=== PATIENT | male | born 1960 | race Caucasian/White ===

== ENCOUNTER 2019-08-29 03:34 | Inpatient (IN) | payer OTHER ==
[~2019-08-29] VITALS: Ht 182.9 cm; Wt 126.0 kg
[2019-08-29] VITALS (12 sets, daily range): BP systolic 112–166; BP diastolic 75–100
[2019-08-29] MEDS ORDERED: aspirin 81mg tab.chew PO ONE ×2 (03:40→13:15)
[2019-08-29] MEDS ORDERED: ondansetron/PF 4mg/2ml inj IV ONE (03:45)
[2019-08-29] MEDS ORDERED: morphine 4 MG/ML inj SYRINge IV ONE (03:45)
[2019-08-29 04:28] LABS: BASOPHILS % (AUTO) 0.6 % (0-1); EOSINOPHILS % (AUTO) 0.3 % (0-6); HEMATOCRIT 49.5 % (42.0-52.0); LYMPHOCYTES # (AUTO) 0.8 X10'3 (1.1-4.8); LYMPHOCYTES % (AUTO) 9.6 % (21-51); MEAN CORPUSCULAR HEMOGLOBIN 30.8 PG (27.0-31.0); MEAN CORPUSCULAR HGB CONC 34.2 g/dL (33.0-36.5); MONOCYTES # (AUTO) 0.2 X10'3 (0-0.9); MONOCYTES % (AUTO) 2.3 % (2-12); NEUTROPHILS # (AUTO) 7.7 X10'3 (1.8-7.7); NEUTROPHILS % (AUTO) 87.2 % (42-75); PLATELET COUNT 159 X10'3 (140-440); RED BLOOD COUNT 5.51 X10'6 (4.70-6.10); RED CELL DISTRIBUTION WIDTH 13.6 % (11.5-14.5); WHITE BLOOD COUNT 8.8 X10'3 (4.5-11.0)
--- NOTE | 2019-08-29 05:08 | NUR ---
[facility] CALLED FOR UPDATE.
[2019-08-29 05:14] LABS: PARTIAL THROMBOPLASTIN TIME 28 SECONDS (22-32)
[2019-08-29 05:15] LABS: ALANINE AMINOTRANSFERASE 57 U/L (12-78); ALBUMIN 3.6 G/DL (3.4-5.0); ALBUMIN/GLOBULIN RATIO 0.9 (1.1-1.5); ALKALINE PHOSPHATASE 75 IU/L (46-116); ANION GAP 11 (8-16); ASPARTATE AMINO TRANSFERASE 184 U/L (10-37); BILIRUBIN,TOTAL 0.5 MG/DL (0.1-1.0); BLOOD UREA NITROGEN 13 MG/DL (7-18); BUN/CREATININE RATIO 15.5 (5.4-32.0); CALCIUM 8.6 MG/DL (8.5-10.1); CHLORIDE 104 MMOL/L (99-107); CREATININE 0.84 MG/DL (0.60-1.10); GLUCOSE 184 MG/DL (70-104); POTASSIUM 3.5 MMOL/L (3.5-5.1); SODIUM 139 MMOL/L (135-145); TOTAL CARBON DIOXIDE 23.6 MMOL/L (24-32); TOTAL PROTEIN 7.5 G/DL (6.4-8.2); eGFR > 90 ML/MIN
[2019-08-29] MEDS ORDERED: heparin 25,000 UNIT/250ml bag 250 ML IV SCH ×2 (05:21→05:54)
[2019-08-29 05:22] LABS: TROPONIN I 27.03 NG/ML (0.0-0.05)
[2019-08-29] MEDS ORDERED: nitroGLYCERIN-Tridil 50MG/D5W 250 ML IV PRN (05:24)
[2019-08-29 05:25] LABS: MAGNESIUM 1.6 MG/DL (1.5-2.4)
[2019-08-29] MEDS ORDERED: heparin 10,000 units/1 ML INJ IV ONE ×2 (05:25)
[2019-08-29] MEDS ORDERED: heparin 10,000 units/1 ML INJ IV PRN ×2 (05:25→05:55)
[2019-08-29] MEDS ORDERED: normal saline 1000ml 1,000 ML IV SCH ×2 (05:54→13:15)
[2019-08-29] MEDS ORDERED: ondansetron/PF 4mg/2ml inj IV PRN ×2 (05:55→13:15)
[2019-08-29] MEDS ORDERED: mag hydrox/Alum hydrox/simeth 30ml oral suspension PO PRN (05:55)
[2019-08-29] MEDS ORDERED: magnesium hydroxide 30ml (MOM) UD suspension PO PRN (05:55)
[2019-08-29] MEDS ORDERED: morphine 2 MG/ML inj. syringe IV PRN ×2 (05:55)
[2019-08-29] MEDS ORDERED: acetaminophen 325mg tablet PO PRN (05:55)
[2019-08-29] MEDS: nitroGLYCERIN-Tridil 50MG/D5W 250 ML IV SCH ×2 (06:10→07:13)
--- NOTE | 2019-08-29 06:15 | NUR ---
Noc RN at bedside.Patient received on bed awake.
--- NOTE | 2019-08-29 06:20 | NUR ---
PT STATUS PROVIDED TO [facility].
[2019-08-29 06:49] LABS: D-DIMER 0.29 MG/L FEU (0-0.50)
[2019-08-29] MEDS ORDERED: OMEP40CA13 PO (06:57)
[2019-08-29] MEDS ORDERED: ASPI-1265 PO (06:57)
[2019-08-29] MEDS ORDERED: ACET650S13 RC (06:57)
[2019-08-29] MEDS ORDERED: LOSA25TA96 PO (06:57)
[2019-08-29] MEDS ORDERED: VITA-268 PO (06:57)
[2019-08-29] MEDS ORDERED: TRAM50TA2 PO (06:57)
[2019-08-29] MEDS ORDERED: HYDR25TA4 PO (06:57)
[2019-08-29] MEDS ORDERED: ERGO500014 PO (06:57)
[2019-08-29] MEDS ORDERED: ACET-2119 PO (06:59)
--- NOTE | 2019-08-29 07:19 | NUR ---
Recieved report from MARISOL Arce in ER. Pt admitted for CP NSTEMI,
[2019-08-29] MEDS ORDERED: sodium bicarbonate (8.4%) 1 mEq/ml syringe ONE (08:00)
[2019-08-29] MEDS ORDERED: calcium chloride 100 MG/1 ML inj IV ONE (08:00)
[2019-08-29] MEDS ORDERED: heparin 1,000 units/ml 10ml inj ONE (08:00)
[2019-08-29] MEDS ORDERED: heparin 10,000 units/1 ML INJ ONE (08:00)
[2019-08-29] MEDS ORDERED: methylPREDNISolone sod. succ. 500mg inj ONE (08:00)
[2019-08-29] MEDS ORDERED: aminocaproic acid 250 MG/1 ML inj. ONE (08:00)
[2019-08-29] MEDS ORDERED: LIDOcaine 2% (20 mg/ml) 5ml cardiac syringe ONE (08:00)
[2019-08-29] MEDS ORDERED: NORepinephrine 1 mg/ml inj IV ONE (08:00)
[2019-08-29] MEDS ORDERED: potassium Cl 2 mEq/ml inj IV ONE (08:00)
[2019-08-29] MEDS ORDERED: MAGNESIUM SULFATE 4 MEQ/ML (5gm/10ml) injection ONE (08:00)
[2019-08-29] MEDS ORDERED: atorvastatin 20mg tablet PO SCH ×2 (08:00→21:00)
[2019-08-29] MEDS ORDERED: albumin (human) 25% 100 ML IV solution IV ONE (08:00)
[2019-08-29] MEDS: lisinopril 5mg tablet PO SCH (08:09)
[2019-08-29] MEDS: aspirin 81mg tablet.DR PO SCH (08:10)
--- NOTE | 2019-08-29 09:05 | NUR ---
I WAS INFORMED THAT PT TROP LEVEL CAME BACK AT 97.34. I SPOKE TO DR SPRAGUE. MED CHANGES MADE. I ALERTED HOUSE SUP REGARDING PT LABS. PT REMAINS NPO. HEP GTT CONTINUES. WE WILL START AGGRASTAT GTT AND D/C NTG GTT. PT DENIES CP.
--- NOTE | 2019-08-29 09:13 | NUR ---
Critical Lab Troponin 97.34 Micheal Hartley Rm [id number] MARISOL Nugent [phone]
[2019-08-29] MEDS ORDERED: tirofiban 5mg in NS 100mL 100 ML IV SCH (09:15)
[2019-08-29] MEDS: heparin 25,000 UNIT/250ml bag 250 ML IV SCH ×2 (09:30→16:57)
--- NOTE | 2019-08-29 11:05 | NUR ---
Critical Lab Troponin 129.08 Micheal Hartley Rm [id number] MARISOL Nugent ext [phone] Sepulveda
--- NOTE | 2019-08-29 11:08 | NUR ---
called Dr aWrd's office to notify of critical Troponin 129.08 notified banana loader of critical value
[2019-08-29] MEDS ORDERED: fentaNYL/PF 50MCG/1 ML 2ML syringe ONE (11:50)
[2019-08-29] MEDS ORDERED: LIDOcaine 1% W/epiNEPHrine 1:100,000 20ml vial ONE (11:50)
[2019-08-29] MEDS ORDERED: iohexol 350MG/ML 100ml bottle IV ONE (11:50)
[2019-08-29] MEDS ORDERED: midazolam 2 mg/2 ml injection ONE (11:50)
[2019-08-29] MEDS ORDERED: metoprolol tartrate 1mg/ml inj IV ONE (12:30)
--- NOTE | 2019-08-29 12:49 | NUR ---
Spoke with laboratory engineer he will be sent back to floor and a surgical consult with Dr Han is scheduled
--- NOTE | 2019-08-29 13:04 | NUR ---
pt returned from casting house laborer. groggy, but arousable. Denies pain or nausea at this time. Vitals are within normal limits. Monitoring for post op vitals per tower.
[2019-08-29] MEDS ORDERED: HYDROcodone/acetaminophen 10/325mg tab PO PRN (13:15)
[2019-08-29] MEDS ORDERED: proCHLORperazine 10 MG/2 ml inj IV PRN (13:15)
[2019-08-29] MEDS ORDERED: HYDROcodone/acetaminophen 5mg/325mg tablet PO PRN (13:15)
[2019-08-29] MEDS ORDERED: normal saline 1000ml 1,000 ML IV ONE (13:19)
[2019-08-29] MEDS ORDERED: OXAZEpam 15mg capsule PO PRN (13:20)
[2019-08-29] MEDS ORDERED: insulin regular, human 100 UNIT in normal saline 100ml IV soln 100 ML IV SCH ×2 (13:51)
[2019-08-29] MEDS ORDERED: vancomycin/NS 1 GM ADD-VANTAGE 250 ML IV ONE (13:55)
[2019-08-29] MEDS ORDERED: MALTODEXTRIN/FRUCTOSE 0.68 KCAL/ML LIQUID 296ML BOTTLE PO ONE (13:55)
[2019-08-29] MEDS ORDERED: magnesium 2GM in 50ml NS 50 ML IV PRN (13:55)
[2019-08-29] MEDS ORDERED: potassium Cl 20 mEq SR tablet PO PRN (13:55)
[2019-08-29] MEDS ORDERED: MESSAGE TO NURSING PO ONE ×4 (13:55)
[2019-08-29] MEDS ORDERED: insulin glargine (Lantus) pen - multi-dose SQ PRN (13:55)
[2019-08-29] MEDS ORDERED: magnesium 4gm in 100ml NS 100 ML IV PRN (13:55)
[2019-08-29] MEDS ORDERED: cefazolin/dext.iso 2gm/50ml 50 ML IV ONE (13:55)
[2019-08-29] MEDS ORDERED: potassium Cl 20mEq/100mL bag 100 ML IV PRN (13:55)
[2019-08-29] MEDS ORDERED: dextrose 50%-water 50ml dispensing syringe IV PRN (13:55)
[2019-08-29] MEDS ORDERED: gabapentin 400mg capsule PO ONE (13:55)
[2019-08-29] MEDS ORDERED: ringers solution, lacted 1,000 ML IV ONE (14:04)
--- NOTE | 2019-08-29 14:45 | NUR ---
pt was transferred to ACCE unit rm 9 MARISOL Nascimento was given report.
--- NOTE | 2019-08-29 15:18 | NUR ---
RESPIRATORY, ULTRASOUND AND BURLAP ROLL COVERER PAGED = [phone]: Sofia PULIDO - 1ST CASE CABG IN AM. PLEASE COME DO PRE-OP STUDIES
[2019-08-29 16:12] LABS: HEMATOCRIT 48.8 % (42.0-52.0); HEMOGLOBIN 16.6 g/dl (14.0-17.9); MEAN CORPUSCULAR HEMOGLOBIN 30.4 PG (27.0-31.0); MEAN CORPUSCULAR VOLUME 89.2 FL (78-98); MEAN PLATELET VOLUME 9.3 FL (7.4-10.4); PLATELET COUNT 155 X10'3 (140-440); RED BLOOD COUNT 5.46 X10'6 (4.70-6.10); WHITE BLOOD COUNT 12.5 X10'3 (4.5-11.0)
[2019-08-29 16:21] LABS: HEMOGLOBIN A1C 5.8 % (4.5-6.2)
[2019-08-29 16:35] LABS: ALBUMIN 3.4 G/DL (3.4-5.0); ANION GAP 9 (8-16); BLOOD UREA NITROGEN 10 MG/DL (7-18); CALCIUM 8.2 MG/DL (8.5-10.1); CHLORIDE 104 MMOL/L (99-107); CREATININE 0.77 MG/DL (0.60-1.10); GLUCOSE 141 MG/DL (70-104); POTASSIUM 3.9 MMOL/L (3.5-5.1); SODIUM 138 MMOL/L (135-145); TOTAL CARBON DIOXIDE 24.8 MMOL/L (24-32); eGFR > 90 ML/MIN
[2019-08-29] MEDS: heparin 10,000 units/1 ML INJ IV PRN (16:54)
--- NOTE | 2019-08-29 17:48 | NUR ---
PRE-OP VANCO DOSE GIVEN BY MISTAKE BEFORE PATIENT TRANSFERRED TO [facility] FOR [facility] PREP. PHARMACY AND DR. BROOKS INFORMED: NO NEW ORDERS RECEIVED
--- NOTE | 2019-08-29 18:00 | NUR ---
Patient in room MED 309. I have received report from MARISOL Jones and had the opportunity to ask questions and assume patient care.
--- NOTE | 2019-08-29 19:02 | NUR ---
Patient in room MED 309. I have received report from SIENA DAMON and had the opportunity to ask questions and assume patient care.
--- NOTE | 2019-08-29 19:15 | NUR ---
Pt left with Chest X-ray tech in W/C at 1915.
--- NOTE | 2019-08-29 19:25 | NUR ---
Pt came back from X-ray at 1925 in wheelchair. No distress noted. Family by bedside
[2019-08-29] MEDS ORDERED: metoprolol tartrate 12.5mg (1/2 tablet) PO SCH (20:00)
[2019-08-29] MEDS ORDERED: bacitracin ointment unit dose packet TP SCH (20:00)
--- NOTE | 2019-08-29 20:31 | NUR ---
Page to Echo: 309 pt ASHOK pre-CABG scheduled for tomorrow am. Has active order for Echo. Thank you. - [phone]
[2019-08-29] MEDS: metoprolol tartrate 25mg tablet PO SCH (20:58)
[2019-08-30] VITALS (17 sets, daily range): BP systolic 91–157; BP diastolic 52–88
[2019-08-30] LABS: ABG BASE EXCESS 2.6 mmol/L (-2.0-3.0); ABG HCO3 26.2 mmol/L (22.0-26.0); ABG OXYGEN SATURATION 94.6 % (95-98); ABG PCO2 (T) 37.4 mmHg (35.0-45.0); ABG PH (T) 7.463 (7.350-7.450); FCOHb 1.3 % (0.5-1.5); FMetHb 0.2 % (0.3-1.12); FO2Hb 93.2 % (94-100); PATIENT TEMPERATURE 37.2; TOTAL HEMOGLOBIN 16.9 G/dl (14.0-17.9)
[2019-08-30] MEDS: heparin 10,000 units/1 ML INJ IV PRN (00:19)
[2019-08-30] MEDS ORDERED: albuterol 2.5 MG/3 ML nebule NEB ONE (00:30)
[2019-08-30 03:13] LABS: CLARITY,URINE CLEAR (Clear); COLOR,URINE YELLOW (Yellow); GLUCOSE, URINE NEGATIVE (Neg); KETONES,URINE NEGATIVE (Neg); LEUKOCYTE ESTERASE ,URINE NEGATIVE (Neg); NITRITES, URINE NEGATIVE (Neg); OCCULT BLOOD,URINE NEGATIVE (Neg); PROTEIN,URINE 30 mg/dl (Neg); UROBILINOGEN,URINE 0.2 E.U/dL (0.2-1.0)
[2019-08-30 03:20] LABS: BACTERIA,URINE NONE SEEN /HPF (Neg); MUCUS STRANDS FEW /LPF (Neg); RBC,URINE 0-2 /HPF (0-2); SQUAMOUS EPITHELIAL CELL,UR FEW /LPF (FEW); UA COLLECTION TYPE CLN CATCH MIDSTREAM; WBC,URINE NONE SEEN /HPF (0-4)
[2019-08-30 04:40] LABS: BASOPHILS % (AUTO) 0.4 % (0-1); EOSINOPHILS % (AUTO) 0.1 % (0-6); HEMOGLOBIN 16.3 g/dl (14.0-17.9); LYMPHOCYTES # (AUTO) 1.3 X10'3 (1.1-4.8); LYMPHOCYTES % (AUTO) 15.7 % (21-51); MEAN CORPUSCULAR HEMOGLOBIN 30.9 PG (27.0-31.0); MEAN CORPUSCULAR HGB CONC 33.9 g/dL (33.0-36.5); MEAN CORPUSCULAR VOLUME 91.1 FL (78-98); MEAN PLATELET VOLUME 9.1 FL (7.4-10.4); MONOCYTES # (AUTO) 0.6 X10'3 (0-0.9); MONOCYTES % (AUTO) 6.8 % (2-12); NEUTROPHILS # (AUTO) 6.3 X10'3 (1.8-7.7); PLATELET COUNT 130 X10'3 (140-440); RED BLOOD COUNT 5.27 X10'6 (4.70-6.10); RED CELL DISTRIBUTION WIDTH 14.3 % (11.5-14.5); WHITE BLOOD COUNT 8.2 X10'3 (4.5-11.0)
[2019-08-30 04:48] LABS: ALBUMIN 3.3 G/DL (3.4-5.0); ANION GAP 5 (8-16); BLOOD UREA NITROGEN 11 MG/DL (7-18); BUN/CREATININE RATIO 11.8 (5.4-32.0); CALCIUM 8.8 MG/DL (8.5-10.1); CHLORIDE 105 MMOL/L (99-107); CREATININE 0.93 MG/DL (0.60-1.10); GLUCOSE 102 MG/DL (70-104); POTASSIUM 3.9 MMOL/L (3.5-5.1); SODIUM 141 MMOL/L (135-145); TOTAL CARBON DIOXIDE 30.8 MMOL/L (24-32); eGFR 84 ML/MIN
[2019-08-30] MEDS ORDERED: bacitracin ointment unit dose packet TP ONE (04:55)
[2019-08-30] MEDS ORDERED: mupirocin 2% nasal ointment 1gm UD NS ONE (04:57)
[2019-08-30] MEDS: metoprolol tartrate 25mg tablet PO SCH (04:59)
[2019-08-30] MEDS ORDERED: cefazolin/dext.iso 2gm/50ml 50 ML IV ONE (05:30)
[2019-08-30] MEDS ORDERED: insulin regular, human 100 UNIT in normal saline 100ml IV soln 100 ML IV SCH ×2 (05:30)
[2019-08-30] MEDS ORDERED: vancomycin/NS 1 GM ADD-VANTAGE 250 ML IV ONE (05:30)
[2019-08-30] MEDS ORDERED: famotidine 20mg tablet PO ONE (06:00)
[2019-08-30] MEDS ORDERED: LORazepam 2 mg/ml vial IV ONE (06:00)
--- NOTE | 2019-08-30 06:00 | NUR ---
Problems reprioritized. Patient report given, questions answered & plan of care reviewed with MARISOL Jones.
--- NOTE | 2019-08-30 06:33 | NUR ---
Patient in room MED 309. I have received report from MARISOL Richards and had the opportunity to ask questions and assume patient care.
[2019-08-30 06:47] LABS: CHOL/HDL RATIO 4.4 (0.00-4.99); CHOLESTEROL 136 MG/DL (0-200); HDL CHOLESTEROL 31 MG/DL (35-60); LDL CHOLESTEROL 97 MG/DL (50-100); TRIGLYCERIDES 96 MG/DL (20-135)
[2019-08-30] MEDS ORDERED: epiNEPHrine 1 mg/ml inj ONE (06:49)
[2019-08-30] MEDS ORDERED: BUPIVAcaine 0.5% inj/PF 30 ML ONE ×2 (06:49→12:10)
[2019-08-30] MEDS ORDERED: ceFAZolin 1000mg inj ONE (06:49)
--- NOTE | 2019-08-30 07:09 | NUR ---
Patient in room MED 309. I have received report from MARISOL Goldman and had the opportunity to ask questions and assume patient care.
[2019-08-30] MEDS ORDERED: SUFENTANIL CITRATE 50 MCG/ML 2ml ampule IV ONE (07:39)
[2019-08-30] MEDS ORDERED: MIDAZolam 5mg/5ml vial ONE (07:39)
[2019-08-30] MEDS ORDERED: pancuronium br 1mg/ml inj IV ONE (07:42)
[2019-08-30] MEDS ORDERED: LIDOcaine 2% (20mg/ml) 5ml vial ONE (07:42)
[2019-08-30] MEDS ORDERED: propofol inj 20 ML IV ONE (07:42)
[2019-08-30] MEDS: lisinopril 5mg tablet PO SCH (08:00)
[2019-08-30] MEDS: aspirin 81mg tablet.DR PO SCH (08:00)
[2019-08-30] MEDS ORDERED: MESSAGE TO NURSING PO ONE (10:00)
[2019-08-30 10:21] LABS: ABG BASE EXCESS -0.5 mmol/L (-2.0-3.0); ABG HCO3 23.3 mmol/L (22.0-26.0); ABG OXYGEN SATURATION 98.9 % (95-98); ABG PCO2 36.1 mmHg (35.0-45.0); ABG PH 7.428 (7.350-7.450); ABG PO2 142.6 mmHg (60.0-100.0); CL (ABG) 102 mmol/L (99-107); FCOHb 1.4 % (0.5-1.5); FMetHb 0.4 % (0.3-1.12); FO2Hb 97.1 % (94-100); GLUCOSE (ABG) 104 mg/dl (70-104); IONIZED CA (ABG) 1.12 mmol/L (1.03-1.32); K (ABG) 3.8 mmol/L (3.3-5.1); NA (ABG) 137 mmol/L (135-145); TOTAL HEMOGLOBIN 15.7 G/dl (14.0-17.9)
[2019-08-30 11:01] LABS: ABG BASE EXCESS 0.8 mmol/L (-2.0-3.0); ABG HCO3 25.5 mmol/L (22.0-26.0); ABG OXYGEN SATURATION 99.4 % (95-98); ABG PCO2 41.1 mmHg (35.0-45.0); ABG PO2 430.1 mmHg (60.0-100.0); CL (ABG) 99 mmol/L (99-107); FMetHb 0.1 % (0.3-1.12); FO2Hb 98.3 % (94-100); GLUCOSE (ABG) 111 mg/dl (70-104); IONIZED CA (ABG) 0.94 mmol/L (1.03-1.32); K (ABG) 3.2 mmol/L (3.3-5.1); NA (ABG) 135 mmol/L (135-145); TOTAL HEMOGLOBIN 12.3 G/dl (14.0-17.9)
[2019-08-30 11:20] LABS: ABG BASE EXCESS VENOUS 0.2 mmol/L; ABG HCO3 VENOUS 26.2 mmol/L; ABG PO2 VENOUS 46.7 mmHg; CL (ABG) 101 mmol/L (99-107); FCOHb VENOUS 1.5 %; FHHb VENOUS 17.8 %; FMetHb VENOUS 0.1 %; FO2Hb VENOUS 80.6 %; GLUCOSE (ABG) 122 mg/dl (70-104); IONIZED CA (ABG) 1.11 mmol/L (1.03-1.32); K (ABG) 4.5 mmol/L (3.3-5.1); NA (ABG) 136 mmol/L (135-145); TOTAL HEMOGLOBIN 13.2 G/dl (14.0-17.9)
[2019-08-30 11:46] LABS: ABG BASE EXCESS -4.4 mmol/L (-2.0-3.0); ABG HCO3 20.3 mmol/L (22.0-26.0); ABG OXYGEN SATURATION 99.2 % (95-98); ABG PCO2 35.9 mmHg (35.0-45.0); ABG PO2 235.2 mmHg (60.0-100.0); CL (ABG) 100 mmol/L (99-107); FCOHb 1.1 % (0.5-1.5); FMetHb 0.3 % (0.3-1.12); FO2Hb 97.8 % (94-100); GLUCOSE (ABG) 119 mg/dl (70-104); IONIZED CA (ABG) 1.26 mmol/L (1.03-1.32); K (ABG) 4.1 mmol/L (3.3-5.1); NA (ABG) 133 mmol/L (135-145); TOTAL HEMOGLOBIN 12.5 G/dl (14.0-17.9)
[2019-08-30 11:55] LABS: ABG BASE EXCESS 2.3 mmol/L (-2.0-3.0); ABG HCO3 26.6 mmol/L (22.0-26.0); ABG OXYGEN SATURATION 99.2 % (95-98); ABG PCO2 40.6 mmHg (35.0-45.0); ABG PH 7.435 (7.350-7.450); ABG PO2 253.7 mmHg (60.0-100.0); CL (ABG) 99 mmol/L (99-107); FCOHb 1.1 % (0.5-1.5); FMetHb 0.3 % (0.3-1.12); FO2Hb 97.8 % (94-100); GLUCOSE (ABG) 119 mg/dl (70-104); IONIZED CA (ABG) 1.16 mmol/L (1.03-1.32); K (ABG) 4.4 mmol/L (3.3-5.1); NA (ABG) 137 mmol/L (135-145)
[2019-08-30 12:15] LABS: ABG BASE EXCESS VENOUS 0.5 mmol/L; ABG HCO3 VENOUS 25.6 mmol/L; ABG PCO2 VENOUS 43.2 mmHg; ABG PO2 VENOUS 38.2 mmHg; CL (ABG) 100 mmol/L (99-107); FCOHb VENOUS 1.3 %; FMetHb VENOUS 0.4 %; FO2Hb VENOUS 71.3 %; GLUCOSE (ABG) 124 mg/dl (70-104); K (ABG) 4.2 mmol/L (3.3-5.1); NA (ABG) 136 mmol/L (135-145); TOTAL HEMOGLOBIN 13.4 G/dl (14.0-17.9)
[2019-08-30] MEDS ORDERED: sodium chloride 0.45% 1,000 ML IV SCH (12:23)
[2019-08-30] MEDS ORDERED: niCARDipine-NS 40mg/200ml IVPB 200 ML IV PRN (12:23)
[2019-08-30] MEDS ORDERED: epiNEPHrine inj 5 MG in normal saline 250ml IV soln 250 ML IV PRN (12:23)
[2019-08-30] MEDS ORDERED: nitroGLYCERIN-Tridil 50MG/D5W 250 ML IV SCH (12:23)
[2019-08-30] MEDS ORDERED: magnesium 4gm in 100ml NS 100 ML IV PRN (12:25)
[2019-08-30] MEDS ORDERED: metoclopramide 5 mg/ml inj IV PRN (12:25)
[2019-08-30] MEDS ORDERED: sodium phosphate inj. 30 MMOL in dextrose 5%-water 250 ML IV PRN (12:25)
[2019-08-30] MEDS ORDERED: potassium Cl 20 mEq SR tablet PO PRN (12:25)
[2019-08-30] MEDS ORDERED: sodium phosphate inj. 15 MMOL in dextrose 5%-water 150 ML IV PRN (12:25)
[2019-08-30] MEDS ORDERED: morphine 4 MG/ML inj SYRINge IV PRN (12:25)
[2019-08-30] MEDS ORDERED: ondansetron/PF 4mg/2ml inj IV PRN (12:25)
[2019-08-30] MEDS ORDERED: acetaminophen 325mg tablet PO PRN ×2 (12:25)
[2019-08-30] MEDS ORDERED: insulin regular, human inj. 100 UNITS in normal saline 100ml IV soln 100 ML IV SCH ×2 (12:25)
[2019-08-30] MEDS ORDERED: Neutra Phos packet PO PRN (12:25)
[2019-08-30] MEDS ORDERED: magnesium hydroxide 30ml (MOM) UD suspension PO PRN (12:25)
[2019-08-30] MEDS ORDERED: dextrose 50%-water 50ml dispensing syringe IV PRN (12:25)
[2019-08-30] MEDS ORDERED: pantoprazole 40 MG vial IV ONE (12:25)
[2019-08-30] MEDS: morphine 4 MG/ML inj SYRINge IV PRN ×3 (12:57→20:48)
[2019-08-30] MEDS: insulin Lispro (HumaLOG) vial - multi-dose SQ SCH ×2 (13:00→18:00)
--- NOTE | 2019-08-30 13:00 | NUR ---
Received to room 2007, accompanied by MDs and surgical crew. Placed on ventilator, to monitoring tech, arterial line and PA line pressure monitored. Chest tubes to suction at 20 cm. Jordan cath to gravity drainage. Dressings are dry and intact. See assessment record. All vasoactive drugs are infusing via central line.
[2019-08-30 13:10] LABS: ABG BASE EXCESS -0.8 mmol/L (-2.0-3.0); ABG HCO3 23.9 mmol/L (22.0-26.0); ABG OXYGEN SATURATION 96.7 % (95-98); ABG PCO2 (T) 39.8 mmHg (35.0-45.0); ABG PH (T) 7.396 (7.350-7.450); ABG PO2 (T) 92.8 mmHg (83-108); FCOHb 0.5 % (0.5-1.5); FLOW 45 L/min; FMetHb 0.1 % (0.3-1.12); FO2Hb 96.1 % (94-100); MINUTE VOLUME 11 L/min; PEEP 5 cm H2O; RESPIRATORY RATE 14 b/min; RESPIRATORY RATE (OBSERVED) 14 b/min; TIDAL VOLUME 700 mL; TOTAL HEMOGLOBIN 15.2 G/dl (14.0-17.9)
[2019-08-30 13:28] LABS: BASOPHILS % (AUTO) 0.3 % (0-1); EOSINOPHILS % (AUTO) 0.1 % (0-6); HEMOGLOBIN 14.8 g/dl (14.0-17.9); LYMPHOCYTES # (AUTO) 0.7 X10'3 (1.1-4.8); LYMPHOCYTES % (AUTO) 8.7 % (21-51); MEAN CORPUSCULAR HEMOGLOBIN 30.6 PG (27.0-31.0); MEAN CORPUSCULAR HGB CONC 33.8 g/dL (33.0-36.5); MEAN CORPUSCULAR VOLUME 90.7 FL (78-98); MEAN PLATELET VOLUME 8.8 FL (7.4-10.4); MONOCYTES # (AUTO) 0.3 X10'3 (0-0.9); MONOCYTES % (AUTO) 4.2 % (2-12); NEUTROPHILS # (AUTO) 6.6 X10'3 (1.8-7.7); NEUTROPHILS % (AUTO) 86.7 % (42-75); PLATELET COUNT 93 X10'3 (140-440); RED BLOOD COUNT 4.85 X10'6 (4.70-6.10); RED CELL DISTRIBUTION WIDTH 14.1 % (11.5-14.5); WHITE BLOOD COUNT 7.6 X10'3 (4.5-11.0)
[2019-08-30 13:36] LABS: ALANINE AMINOTRANSFERASE 50 U/L (12-78); ALBUMIN 3.1 G/DL (3.4-5.0); ALBUMIN/GLOBULIN RATIO 1.1 (1.1-1.5); ALKALINE PHOSPHATASE 53 IU/L (46-116); ANION GAP 10 (8-16); ASPARTATE AMINO TRANSFERASE 127 U/L (10-37); BLOOD UREA NITROGEN 12 MG/DL (7-18); BUN/CREATININE RATIO 13.2 (5.4-32.0); CALCIUM 8.2 MG/DL (8.5-10.1); CHLORIDE 107 MMOL/L (99-107); CREATININE 0.91 MG/DL (0.60-1.10); GLUCOSE 156 MG/DL (70-104); MAGNESIUM 2.6 MG/DL (1.5-2.4); PHOSPHORUS 2.4 MG/DL (2.3-4.5); POTASSIUM 4.1 MMOL/L (3.5-5.1); SODIUM 143 MMOL/L (135-145); TOTAL CARBON DIOXIDE 26.2 MMOL/L (24-32); TOTAL PROTEIN 5.9 G/DL (6.4-8.2); eGFR 86 ML/MIN
[2019-08-30] MEDS: dexmedetomidin/NS 400mcg/100ml 100 ML IV SCH ×2 (14:00→21:46)
[2019-08-30 14:07] LABS: PARTIAL THROMBOPLASTIN TIME 28 SECONDS (22-32)
[2019-08-30] MEDS: gabapentin 300mg capsule PO SCH ×2 (14:10→20:27)
[2019-08-30] MEDS: potassium Cl 20mEq/100mL bag 100 ML IV PRN ×4 (14:10→19:47)
[2019-08-30] MEDS ORDERED: morphine 10mg/ml inj. IV ONE (14:25)
[2019-08-30] MEDS ORDERED: NORepinephrine 8mg/ 250ml NS 250 ML IV SCH (14:55)
--- NOTE | 2019-08-30 15:40 | NUR ---
Patient becoming increasingly hypotensive with SBP in the 80/90s and MAP in the low 60s; CVP 9 [address] PA systolic 28[address] Dr[address] Monsivais called to update with orders to give Albumin 250ml and to follow-up with another x1 if needed. MD aware of patient's low EF with orders to administer fluids. MD would like to wean levophed off as well. Patient also with 4 beat run of VTACH; MD aware, electrolytes being replaced per protocol. MD also notified of temperature at 38.0 C and diaphoretic; no new orders at this time.
[2019-08-30] MEDS: albumin (Human) 5% 250ml 250 ML IV PRN ×3 (15:41→17:48)
[2019-08-30] MEDS: ceFAZolin 1GM/D5W- ADD-VANTAGE 50 ML IV SCH ×2 (17:03→23:56)
[2019-08-30 18:15] LABS: BASOPHILS % (AUTO) 0 % (0-1); EOSINOPHILS % (AUTO) 0 % (0-6); HEMATOCRIT 39.1 % (42.0-52.0); HEMOGLOBIN 13.2 g/dl (14.0-17.9); LYMPHOCYTES # (AUTO) 0.5 X10'3 (1.1-4.8); LYMPHOCYTES % (AUTO) 7.3 % (21-51); MEAN CORPUSCULAR HEMOGLOBIN 30.7 PG (27.0-31.0); MEAN CORPUSCULAR HGB CONC 33.7 g/dL (33.0-36.5); MEAN CORPUSCULAR VOLUME 91.2 FL (78-98); MEAN PLATELET VOLUME 8.5 FL (7.4-10.4); MONOCYTES # (AUTO) 0.2 X10'3 (0-0.9); MONOCYTES % (AUTO) 2.6 % (2-12); NEUTROPHILS # (AUTO) 6.7 X10'3 (1.8-7.7); NEUTROPHILS % (AUTO) 90.1 % (42-75); PLATELET COUNT 103 X10'3 (140-440); RED BLOOD COUNT 4.29 X10'6 (4.70-6.10); RED CELL DISTRIBUTION WIDTH 13.8 % (11.5-14.5); WHITE BLOOD COUNT 7.5 X10'3 (4.5-11.0)
--- NOTE | 2019-08-30 18:18 | NUR ---
Patient in room CICU 2006. I have received report from Rupert DAMON, and had the opportunity to ask questions and assume patient care.
--- NOTE | 2019-08-30 18:20 | NUR ---
Problems reprioritized. Patient report given, questions answered & plan of care reviewed with Travon DAMON.
[2019-08-30 18:26] LABS: ALBUMIN 3.3 G/DL (3.4-5.0); ANION GAP 4 (8-16); BLOOD UREA NITROGEN 13 MG/DL (7-18); BUN/CREATININE RATIO 13.7 (5.4-32.0); CALCIUM 7.6 MG/DL (8.5-10.1); CHLORIDE 111 MMOL/L (99-107); CREATININE 0.95 MG/DL (0.60-1.10); GLUCOSE 148 MG/DL (70-104); MAGNESIUM 2.2 MG/DL (1.5-2.4); PHOSPHORUS 1.9 MG/DL (2.3-4.5); POTASSIUM 4.3 MMOL/L (3.5-5.1); SODIUM 142 MMOL/L (135-145); TOTAL CARBON DIOXIDE 26.9 MMOL/L (24-32); eGFR 82 ML/MIN
[2019-08-30] MEDS: magnesium 2GM in 50ml NS 50 ML IV PRN (18:52)
--- NOTE | 2019-08-30 19:26 | NUR ---
PT is intubated and mechanically vented, had been on SPONT mode since about 1729 and tolerating well. O2 sat >96%, RR in mid teens. PT S/P CAGB, Drsg to sternum is CDI. PA in place and is marked @ 50, A-Line to Rt radial, CVL to RT IJ with all vaso active meds being infused to CVL, PT has 18g PIV to LT AC which is SL. PT has CTx3, drsg are CDI, sanguineous drainage noted in tubing. Jordan in place draining to gravity. Drsg to Rt leg is CDI. PT is easy to wake, nods head yes/no to simple questions, has nodded head no when asked if in pain. Bilat soft wrist restraints in place and secure. Bed is locked and low. Will continue to monitor closely.
[2019-08-30 19:55] LABS: ABG BASE EXCESS -1.8 mmol/L (-2.0-3.0); ABG HCO3 22.2 mmol/L (22.0-26.0); ABG OXYGEN SATURATION 97.4 % (95-98); ABG PCO2 (T) 37.5 mmHg (35.0-45.0); ABG PH (T) 7.396 (7.350-7.450); FCOHb 0.5 % (0.5-1.5); FMetHb 0.1 % (0.3-1.12); FO2Hb 96.8 % (94-100); MINUTE VOLUME 9 L/min; PATIENT TEMPERATURE 38.1; PEEP 5 cm H2O; RESPIRATORY RATE (OBSERVED) 13 b/min; TIDAL VOLUME 655 mL; TOTAL HEMOGLOBIN 13.7 G/dl (14.0-17.9)
[2019-08-30] MEDS: docusate sod 100mg capsule PO SCH (20:00)
--- NOTE | 2019-08-30 20:23 | NUR ---
Dr Monsivais called d/t Extubate PT order being cancelled. PT ABG' values are all within normal range, Weaning parameters have been meet. PT has been in CPAP science about 1730 and tolerating well, O2 sat has been >96%. PT is easy to wake and follows commands. All have been reported to Dr Monsivais. Order received to go ahead and extubate PT.
[2019-08-30] MEDS: mupirocin 2% nasal ointment 1gm UD NS SCH (20:28)
[2019-08-30] MEDS: vancomycin/NS 1 GM ADD-VANTAGE 250 ML IV SCH (20:28)
--- NOTE | 2019-08-30 21:00 | NUR ---
PT extubated @ 2034, tolerated well and is on 3L NC. O2 sat >96%. PT is resting with no s/s of distress noted at this time. VSS. Pain meds given and effective. Will continue to monitor.
--- NOTE | 2019-08-30 22:30 | NUR ---
PT's called to check in, she was updated on PT condition. PT resting with no s/s of distress noted at this time. VSS. Will continue to monitor.
[2019-08-31] VITALS (24 sets, daily range): BP systolic 94–142; BP diastolic 49–83
[2019-08-31] MEDS: HYDROcodone/acetaminophen 10/325mg tab PO PRN (01:14)
--- NOTE | 2019-08-31 01:30 | NUR ---
PT resting with no s/s of distress noted at this time. VSS. Bed is locked and low. Call light is within reach. Will continue to monitor.
[2019-08-31 03:39] LABS: ALANINE AMINOTRANSFERASE 41 U/L (12-78); ALBUMIN 3.1 G/DL (3.4-5.0); ALBUMIN/GLOBULIN RATIO 1.1 (1.1-1.5); ALKALINE PHOSPHATASE 41 IU/L (46-116); ANION GAP 5 (8-16); ASPARTATE AMINO TRANSFERASE 98 U/L (10-37); BILIRUBIN,TOTAL 0.5 MG/DL (0.1-1.0); BLOOD UREA NITROGEN 14 MG/DL (7-18); BUN/CREATININE RATIO 16.3 (5.4-32.0); CALCIUM 7.7 MG/DL (8.5-10.1); CHLORIDE 111 MMOL/L (99-107); CREATININE 0.86 MG/DL (0.60-1.10); GLUCOSE 117 MG/DL (70-104); MAGNESIUM 2.4 MG/DL (1.5-2.4); PHOSPHORUS 2.8 MG/DL (2.3-4.5); POTASSIUM 4.3 MMOL/L (3.5-5.1); SODIUM 142 MMOL/L (135-145); TOTAL CARBON DIOXIDE 26.5 MMOL/L (24-32); TOTAL PROTEIN 5.9 G/DL (6.4-8.2); eGFR > 90 ML/MIN
[2019-08-31 03:48] LABS: PARTIAL THROMBOPLASTIN TIME 31 SECONDS (22-32)
[2019-08-31 03:54] LABS: BASOPHILS % (AUTO) 0 % (0-1); EOSINOPHILS % (AUTO) 0 % (0-6); HEMATOCRIT 37.4 % (42.0-52.0); HEMOGLOBIN 12.7 g/dl (14.0-17.9); LYMPHOCYTES # (AUTO) 0.7 X10'3 (1.1-4.8); LYMPHOCYTES % (AUTO) 6.3 % (21-51); MEAN CORPUSCULAR HEMOGLOBIN 30.9 PG (27.0-31.0); MEAN CORPUSCULAR HGB CONC 33.9 g/dL (33.0-36.5); MEAN CORPUSCULAR VOLUME 91.3 FL (78-98); MEAN PLATELET VOLUME 8.9 FL (7.4-10.4); MONOCYTES # (AUTO) 0.5 X10'3 (0-0.9); MONOCYTES % (AUTO) 4.8 % (2-12); NEUTROPHILS # (AUTO) 9.8 X10'3 (1.8-7.7); NEUTROPHILS % (AUTO) 88.9 % (42-75); PLATELET COUNT 102 X10'3 (140-440); RED CELL DISTRIBUTION WIDTH 13.8 % (11.5-14.5)
--- NOTE | 2019-08-31 04:00 | NUR ---
PT resting with no s/s of distress noted at this time. VSS. Bed is locked and low. Call light is within reach. Will continue to monitor.
[2019-08-31] MEDS: potassium Cl 20mEq/100mL bag 100 ML IV PRN (05:29)
--- NOTE | 2019-08-31 06:37 | NUR ---
Problems reprioritized. Patient report given, questions answered & plan of care reviewed with Chery DAMON.
[2019-08-31] MEDS: morphine 4 MG/ML inj SYRINge IV PRN ×2 (07:01→11:36)
[2019-08-31] MEDS: docusate sod 100mg capsule PO SCH ×2 (07:38→20:40)
[2019-08-31] MEDS: vancomycin/NS 1 GM ADD-VANTAGE 250 ML IV SCH ×2 (07:38→20:41)
[2019-08-31] MEDS: gabapentin 300mg capsule PO SCH ×3 (07:38→20:40)
[2019-08-31] MEDS: ceFAZolin 1GM/D5W- ADD-VANTAGE 50 ML IV SCH ×2 (07:38→16:23)
[2019-08-31] MEDS: aspirin 325mg tablet, delayed-release (Ecotrin) PO SCH (07:39)
[2019-08-31] MEDS: atorvastatin 10mg tablet PO SCH (07:39)
[2019-08-31] MEDS: metoprolol tartrate 12.5mg (1/2 tablet) PO SCH ×2 (07:39→20:40)
[2019-08-31] MEDS: mupirocin 2% nasal ointment 1gm UD NS SCH ×2 (07:40→20:40)
[2019-08-31] MEDS: insulin Lispro (HumaLOG) vial - multi-dose SQ SCH (09:00)
--- NOTE | 2019-08-31 11:29 | NUR ---
CABG consult: Pt s/p CABGx4. Will need written/verbal CABG/HH diet eds once stable prior to d/c. Addendum: 08/31/19 at [address] Amended: Links added.
[2019-08-31] MEDS: ketorolac trometh. 30mg/ml inj. IM SCH ×2 (16:24→20:40)
--- NOTE | 2019-08-31 18:34 | NUR ---
Patient in room [facility] 2007. I have received report from Chery Sanchez RN and had the opportunity to ask questions and assume patient care. Addendum: 09/01/19 at 0626 by Daquan Woodson RN Chery Butt RN is the correct name not Chery Sanchez
[2019-09-01] VITALS (18 sets, daily range): BP systolic 110–140; BP diastolic 67–88
[2019-09-01] MEDS: ceFAZolin 1GM/D5W- ADD-VANTAGE 50 ML IV SCH (00:04)
[2019-09-01 03:23] LABS: MAGNESIUM 2.3 MG/DL (1.5-2.4); PHOSPHORUS 3.4 MG/DL (2.3-4.5); POTASSIUM 4.1 MMOL/L (3.5-5.1)
[2019-09-01] MEDS: ketorolac trometh. 30mg/ml inj. IM SCH ×4 (03:32→20:00)
[2019-09-01 05:51] LABS: ACT @ 1.70 U 260 SEC (193-297); ACT @ 2.84 U 357 SEC (260-420); BASELINE ACT 144 SEC (101-148)
[2019-09-01 05:51] LABS: ACTIVATED CLOTTING TIME 138 SEC (101-148)
--- NOTE | 2019-09-01 06:26 | NUR ---
Problems reprioritized. Patient report given, questions answered & plan of care reviewed with Chery Butt RN.
[2019-09-01] MEDS: atorvastatin 10mg tablet PO SCH (08:27)
[2019-09-01] MEDS: pantoprazole 40mg Tablet.DR PO SCH (08:27)
[2019-09-01] MEDS: docusate sod 100mg capsule PO SCH ×2 (08:27→21:59)
[2019-09-01] MEDS: aspirin 325mg tablet, delayed-release (Ecotrin) PO SCH (08:27)
[2019-09-01] MEDS: gabapentin 300mg capsule PO SCH (08:28)
[2019-09-01] MEDS: mupirocin 2% nasal ointment 1gm UD NS SCH (08:29)
[2019-09-01] MEDS: magnesium 2GM in 50ml NS 50 ML IV PRN (08:29)
[2019-09-01 10:02] LABS: BASOPHILS # (AUTO) 0.1 X10'3 (0-0.2); BASOPHILS % (AUTO) 0.9 % (0-1); EOSINOPHILS % (AUTO) 0 % (0-6); HEMATOCRIT 34.1 % (42.0-52.0); HEMOGLOBIN 11.4 g/dl (14.0-17.9); LYMPHOCYTES # (AUTO) 1.5 X10'3 (1.1-4.8); LYMPHOCYTES % (AUTO) 19.8 % (21-51); MEAN CORPUSCULAR HEMOGLOBIN 30.7 PG (27.0-31.0); MEAN CORPUSCULAR HGB CONC 33.5 g/dL (33.0-36.5); MEAN CORPUSCULAR VOLUME 91.7 FL (78-98); MEAN PLATELET VOLUME 9.5 FL (7.4-10.4); MONOCYTES # (AUTO) 0.5 X10'3 (0-0.9); MONOCYTES % (AUTO) 6.7 % (2-12); NEUTROPHILS # (AUTO) 5.4 X10'3 (1.8-7.7); NEUTROPHILS % (AUTO) 72.6 % (42-75); PLATELET COUNT 82 X10'3 (140-440); RED BLOOD COUNT 3.71 X10'6 (4.70-6.10); RED CELL DISTRIBUTION WIDTH 13.8 % (11.5-14.5); WHITE BLOOD COUNT 7.5 X10'3 (4.5-11.0)
[2019-09-01 10:07] LABS: ALANINE AMINOTRANSFERASE 35 U/L (12-78); ALBUMIN 2.8 G/DL (3.4-5.0); ALKALINE PHOSPHATASE 41 IU/L (46-116); ANION GAP 5 (8-16); ASPARTATE AMINO TRANSFERASE 49 U/L (10-37); BILIRUBIN,TOTAL 0.5 MG/DL (0.1-1.0); BLOOD UREA NITROGEN 24 MG/DL (7-18); BUN/CREATININE RATIO 26.1 (5.4-32.0); CALCIUM 7.8 MG/DL (8.5-10.1); CHLORIDE 106 MMOL/L (99-107); CREATININE 0.92 MG/DL (0.60-1.10); GLUCOSE 99 MG/DL (70-104); SODIUM 138 MMOL/L (135-145); TOTAL PROTEIN 5.7 G/DL (6.4-8.2); eGFR 85 ML/MIN
[2019-09-01] MEDS: HYDROcodone/acetaminophen 10/325mg tab PO PRN ×2 (17:58→22:02)
--- NOTE | 2019-09-01 19:15 | NUR ---
Patient in room MED 309. I have received report from MARISOL Croft and had the opportunity to ask questions and assume patient care. Per handoff report: Patient had a CABG X4 on 08/30 with a grafting from the left saphenus vein and mammary vein. Patient has a history of HTN, chronic back pain and smokes cigarettes. Sternal incision open to air, pacer wires isolated, chest tubes removed. uses CPAP at home, labs WNL.
--- NOTE | 2019-09-01 19:18 | NUR ---
call x [address] Monsivais regarding pt wanting to use is home CPAP message left waiting a return call. pt ate dinner without difficulties, Report called to ACCE unit, plan of care reviewed and explained I am still waiting a call from Dr. Monsivais
--- NOTE | 2019-09-01 19:50 | NUR ---
pt placed on monitor and transferred with all belongings to 309 without difficulties
--- NOTE | 2019-09-01 19:55 | NUR ---
Patient arrived to room 309 via wheelchair, monitor attached with all known belongings. patient ambulated from wheelchair to bed and was hooked up to bedside monitor.
[2019-09-01] MEDS: metoprolol tartrate 50mg tablet PO SCH (22:01)
[2019-09-02 02:00] VITALS: BP 120/76
[2019-09-02] MEDS: ketorolac trometh. 30mg/ml inj. IM SCH ×2 (02:00→08:00)
[2019-09-02] MEDS: HYDROcodone/acetaminophen 10/325mg tab PO PRN ×2 (02:13→19:12)
[2019-09-02 05:19] LABS: POTASSIUM 4.3 MMOL/L (3.5-5.1)
[2019-09-02 06:00] VITALS: BP 117/79
--- NOTE | 2019-09-02 06:10 | NUR ---
Problems reprioritized. Patient report given, questions answered & plan of care reviewed with MARISOL ORTA AND MARISOL MORAN. Addendum: 09/02/19 at 0632 by Annamaria Martinez RN REPORT GIVEN WITH MARISOL ENGLAND RN AND MARISOL ORTA
[2019-09-02 07:55] LABS: BASOPHILS % (AUTO) 0.3 % (0-1); EOSINOPHILS # (AUTO) 0.1 X10'3 (0-0.9); HEMATOCRIT 36.8 % (42.0-52.0); HEMOGLOBIN 12.5 g/dl (14.0-17.9); LYMPHOCYTES # (AUTO) 1.4 X10'3 (1.1-4.8); MEAN CORPUSCULAR HEMOGLOBIN 30.7 PG (27.0-31.0); MEAN CORPUSCULAR VOLUME 90.4 FL (78-98); MEAN PLATELET VOLUME 8.4 FL (7.4-10.4); MONOCYTES # (AUTO) 0.4 X10'3 (0-0.9); MONOCYTES % (AUTO) 6.9 % (2-12); NEUTROPHILS # (AUTO) 3.8 X10'3 (1.8-7.7); NEUTROPHILS % (AUTO) 66.8 % (42-75); PLATELET COUNT 105 X10'3 (140-440); RED BLOOD COUNT 4.07 X10'6 (4.70-6.10); RED CELL DISTRIBUTION WIDTH 13.8 % (11.5-14.5); WHITE BLOOD COUNT 5.7 X10'3 (4.5-11.0)
[2019-09-02 08:00] LABS: ALBUMIN 2.8 G/DL (3.4-5.0); ANION GAP 5 (8-16); BLOOD UREA NITROGEN 16 MG/DL (7-18); BUN/CREATININE RATIO 19.5 (5.4-32.0); CHLORIDE 104 MMOL/L (99-107); CREATININE 0.82 MG/DL (0.60-1.10); GLUCOSE 96 MG/DL (70-104); POTASSIUM 3.9 MMOL/L (3.5-5.1); SODIUM 137 MMOL/L (135-145); eGFR > 90 ML/MIN
[2019-09-02] MEDS: docusate sod 100mg capsule PO SCH ×2 (08:17→19:11)
[2019-09-02] MEDS: aspirin 325mg tablet, delayed-release (Ecotrin) PO SCH (08:18)
[2019-09-02] MEDS: pantoprazole 40mg Tablet.DR PO SCH (08:18)
[2019-09-02] MEDS: metoprolol tartrate 50mg tablet PO SCH ×2 (08:18→19:11)
[2019-09-02] MEDS: atorvastatin 10mg tablet PO SCH (08:18)
[2019-09-02] MEDS: heparin, porcine 5000 units/ml vial SQ SCH ×3 (08:19→19:11)
[2019-09-02 11:00] VITALS: BP 120/71
--- NOTE | 2019-09-02 12:47 | NUR ---
Initial: Pt seen by RD for written/verbal CABG/HH eds w/ RD contact information provided. Pt PO 100% meals meeting needs; requests butter/sugar substitute x2 at breakfast. Dietary notified. LB 09/01. No nutrition concerns at this time. Will continue to monitor. Rec: 1. continue NCS diet 2. wt per rx Addendum: 09/02/19 at [address] Amended: Links added.
[2019-09-02 15:00] VITALS: BP 129/72
[2019-09-02 18:00] VITALS: BP 120/83
[2019-09-02 22:00] VITALS: BP 129/83
[2019-09-03] VITALS (7 sets, daily range): BP systolic 93–122; BP diastolic 62–88
[2019-09-03 05:16] LABS: ALBUMIN 2.7 G/DL (3.4-5.0); ANION GAP 6 (8-16); BLOOD UREA NITROGEN 13 MG/DL (7-18); BUN/CREATININE RATIO 17.1 (5.4-32.0); CALCIUM 8.4 MG/DL (8.5-10.1); CHLORIDE 106 MMOL/L (99-107); CREATININE 0.76 MG/DL (0.60-1.10); GLUCOSE 104 MG/DL (70-104); POTASSIUM 4.2 MMOL/L (3.5-5.1); SODIUM 140 MMOL/L (135-145); TOTAL CARBON DIOXIDE 27.8 MMOL/L (24-32); eGFR > 90 ML/MIN
--- NOTE | 2019-09-03 06:20 | NUR ---
Gave report to Monserrat. Answered all the questions.
[2019-09-03] MEDS ORDERED: furosemide 40mg/4ml inj IV ONE (09:00)
[2019-09-03] MEDS: pantoprazole 40mg Tablet.DR PO SCH (10:20)
[2019-09-03] MEDS: heparin, porcine 5000 units/ml vial SQ SCH ×2 (10:20→17:16)
[2019-09-03] MEDS: aspirin 325mg tablet, delayed-release (Ecotrin) PO SCH (10:20)
[2019-09-03] MEDS: atorvastatin 10mg tablet PO SCH (10:20)
[2019-09-03] MEDS: docusate sod 100mg capsule PO SCH ×2 (10:21→20:34)
[2019-09-03] MEDS: metoprolol tartrate 25mg tablet PO SCH ×2 (10:25→20:35)
--- NOTE | 2019-09-03 13:36 | NUR ---
pt requesting something for constipation, nothing ordered. Dr. Sepulveda aware and stated ok to order Milk of Mag.
[2019-09-03] MEDS ORDERED: magnesium hydroxide 30ml (MOM) UD suspension PO PRN (13:40)
[2019-09-03] MEDS: HYDROcodone/acetaminophen 10/325mg tab PO PRN (17:22)
[2019-09-04] MEDS: heparin, porcine 5000 units/ml vial SQ SCH ×2 (00:13→07:47)
[2019-09-04 02:00] VITALS: BP 120/76
[2019-09-04 02:41] LABS: MAGNESIUM 1.9 MG/DL (1.5-2.4)
[2019-09-04 03:04] LABS: BASOPHILS % (AUTO) 0.3 % (0-1); EOSINOPHILS # (AUTO) 0.1 X10'3 (0-0.9); EOSINOPHILS % (AUTO) 1.7 % (0-6); HEMATOCRIT 38.8 % (42.0-52.0); LYMPHOCYTES # (AUTO) 1.4 X10'3 (1.1-4.8); LYMPHOCYTES % (AUTO) 23.4 % (21-51); MEAN CORPUSCULAR HEMOGLOBIN 30.4 PG (27.0-31.0); MEAN CORPUSCULAR HGB CONC 33.7 g/dL (33.0-36.5); MEAN CORPUSCULAR VOLUME 90.5 FL (78-98); MEAN PLATELET VOLUME 8.8 FL (7.4-10.4); MONOCYTES # (AUTO) 0.5 X10'3 (0-0.9); MONOCYTES % (AUTO) 7.9 % (2-12); NEUTROPHILS # (AUTO) 4.1 X10'3 (1.8-7.7); NEUTROPHILS % (AUTO) 66.7 % (42-75); PLATELET COUNT 136 X10'3 (140-440); RED BLOOD COUNT 4.28 X10'6 (4.70-6.10); RED CELL DISTRIBUTION WIDTH 13.5 % (11.5-14.5); WHITE BLOOD COUNT 6.1 X10'3 (4.5-11.0)
[2019-09-04 03:10] LABS: ALBUMIN 2.9 G/DL (3.4-5.0); ANION GAP 8 (8-16); BLOOD UREA NITROGEN 18 MG/DL (7-18); BUN/CREATININE RATIO 20.9 (5.4-32.0); CALCIUM 8.3 MG/DL (8.5-10.1); CHLORIDE 105 MMOL/L (99-107); CREATININE 0.86 MG/DL (0.60-1.10); GLUCOSE 115 MG/DL (70-104); POTASSIUM 4.4 MMOL/L (3.5-5.1); SODIUM 142 MMOL/L (135-145); TOTAL CARBON DIOXIDE 28.7 MMOL/L (24-32); eGFR > 90 ML/MIN
[2019-09-04 06:00] VITALS: BP 131/87
--- NOTE | 2019-09-04 06:24 | NUR ---
Gave report to Dago. Answered all the questions.
[2019-09-04] MEDS: pantoprazole 40mg Tablet.DR PO SCH (07:45)
[2019-09-04] MEDS: atorvastatin 10mg tablet PO SCH (07:45)
[2019-09-04 07:46] VITALS: BP_SYST 131
[2019-09-04] MEDS: metoprolol tartrate 25mg tablet PO SCH (07:46)
[2019-09-04] MEDS: aspirin 325mg tablet, delayed-release (Ecotrin) PO SCH (07:47)
[2019-09-04] MEDS: docusate sod 100mg capsule PO SCH (07:47)
[2019-09-04] MEDS ORDERED: HYDR-4353 PO (08:34)
[2019-09-04] MEDS ORDERED: ATOR10TA PO (08:34)
[2019-09-04] MEDS ORDERED: DOCU100C40 PO (08:34)
[2019-09-04] MEDS ORDERED: METO25TA6 PO (08:34)
--- NOTE | 2019-09-04 11:32 | NUR ---
Patient in room MED 309. I have received report from MARISOL Starr and had the opportunity to ask questions and assume patient care.
--- NOTE | 2019-09-04 11:33 | NUR ---
reviewed all discharge instructions;discharge prescriptions faxed to [email or web address],information sheets provided.Pt aware of need for f/u appt.with Dr. Vasquez, and PMD,no driving per Dr. Vasquez. All sternal precautions,bathing,wound care, I.S and flutter valve use reviewed with pt and daughter. Pt states adequate help at home, aware home health not available, smoking cessation encouraged SL dc'd from [facility],site clear Pt dc'd with all belongings via w/c with family
== END 2019-09-04 11:24 | disposition home or self-care (01) | DRG 234 ==
LOC: ER 03:34 → ED HOLD 06:34 → PCU 3S 07:41 → MED 3N 14:50 → CICU 2S 08-30 12:46 → MED 3N 09-01 20:07
PROVIDERS: ADMIT Hospitalist; ATTEND Thoracic Surgery (Cardiothoracic Vascular Surgery)
PROC: 4A023N7 Measurement of Cardiac Sampling and Pressure, Left Heart, Percutaneous Approach (ICD-10-PCS; principal; 2019-08-29)
PROC: B2111ZZ Fluoroscopy of Multiple Coronary Arteries using Low Osmolar Contrast (ICD-10-PCS; 2019-08-29)
PROC: B2151ZZ Fluoroscopy of Left Heart using Low Osmolar Contrast (ICD-10-PCS; 2019-08-29)
PROC: 02100Z9 Bypass Coronary Artery, One Artery from Left Internal Mammary, Open Approach (ICD-10-PCS; 2019-08-30)
PROC: 021209W Bypass Coronary Artery, Three Arteries from Aorta with Autologous Venous Tissue, Open Approach (ICD-10-PCS; 2019-08-30)
PROC: 06BQ4ZZ Excision of Left Saphenous Vein, Percutaneous Endoscopic Approach (ICD-10-PCS; 2019-08-30)
PROC: B24BZZ4 Ultrasonography of Heart with Aorta, Transesophageal (ICD-10-PCS; 2019-08-30)
PROC: 5A1221Z Performance of Cardiac Output, Continuous (ICD-10-PCS; 2019-08-30)
PROC: 02HV33Z Insertion of Infusion Device into Superior Vena Cava, Percutaneous Approach (ICD-10-PCS; 2019-08-30)
PROC: B548ZZA Ultrasonography of Superior Vena Cava, Guidance (ICD-10-PCS; 2019-08-30)
PROC: 02HP32Z Insertion of Monitoring Device into Pulmonary Trunk, Percutaneous Approach (ICD-10-PCS; 2019-08-30)
PROC: 4A133B3 Monitoring of Arterial Pressure, Pulmonary, Percutaneous Approach (ICD-10-PCS; 2019-08-30)
PROC: 4A1239Z Monitoring of Cardiac Output, Percutaneous Approach (ICD-10-PCS; 2019-08-30)
DX: I21.4 Non-ST elevation (NSTEMI) myocardial infarction (principal); I25.10 Atherosclerotic heart disease of native coronary artery without angina pectoris; E66.9 Obesity, unspecified; F17.210 Nicotine dependence, cigarettes, uncomplicated; G47.33 Obstructive sleep apnea (adult) (pediatric); I34.0 Nonrheumatic mitral (valve) insufficiency; K21.9 Gastro-esophageal reflux disease without esophagitis; G89.29 Other chronic pain; I10 Essential (primary) hypertension; M54.9 Dorsalgia, unspecified; R00.0 Tachycardia, unspecified; Z68.37 Body mass index [BMI] 37.0-37.9, adult
CPT/HCPCS: 36415; 36600; 71045; 71046; 76937; 80048; 80053; 80061; 81001; 82330; 82435; 82803; 82947; 82948; 83036; 83735; 83880; 84100; 84132; 84295; 84484; 85018; 85025; 85027; 85347; 85379; 85384; 85610; 85730; 86885; 86900; 86901; 86920; 87081; 93005; 93312; 93325; 93458; 93880; 93970; 94002; 94060; 94640; 94667; 94668; 94760; 96365; 96375; 96376; 97110; 97116; 97162; 97530; 99152; 99291; A4618; A4620; A6258; A6446; A6449; A7000; A7048; C1751; C1769; C9113; G0378; J0171; J0690; J1644; J1815; J1885; J1940; J2001; J2060; J2150; J2250; J2270; J2405; J2704; J2765; J2930; J3010; J3246; J3370; J3475; J3480; J3490; J7030; J7040; J7050; J7120; P9045; P9047; Q9967

== ENCOUNTER 2020-04-07 07:20 | Day surgery (SDC) | payer OTHER ==
[2020-04-06 08:26] LABS: BASOPHILS % (AUTO) 0.7 % (0-1); EOSINOPHILS # (AUTO) 0.1 X10'3 (0-0.9); EOSINOPHILS % (AUTO) 1.8 % (0-6); HEMATOCRIT 48.4 % (42.0-52.0); LYMPHOCYTES # (AUTO) 1.9 X10'3 (1.1-4.8); LYMPHOCYTES % (AUTO) 29.3 % (21-51); MEAN CORPUSCULAR HEMOGLOBIN 27.9 PG (27.0-31.0); MEAN CORPUSCULAR HGB CONC 33.1 g/dL (33.0-36.5); MEAN CORPUSCULAR VOLUME 84.2 FL (78-98); MONOCYTES # (AUTO) 0.4 X10'3 (0-0.9); MONOCYTES % (AUTO) 6.4 % (2-12); NEUTROPHILS % (AUTO) 61.8 % (42-75); PLATELET COUNT 135 X10'3 (140-440); RED BLOOD COUNT 5.74 X10'6 (4.70-6.10); RED CELL DISTRIBUTION WIDTH 15.3 % (11.5-14.5); WHITE BLOOD COUNT 6.5 X10'3 (4.5-11.0)
[2020-04-06 08:33] LABS: ALBUMIN 3.7 G/DL (3.4-5.0); ANION GAP 8 (8-16); BLOOD UREA NITROGEN 15 MG/DL (7-18); BUN/CREATININE RATIO 16.5 (5.4-32.0); CALCIUM 8.9 MG/DL (8.5-10.1); CHLORIDE 105 MMOL/L (99-107); CREATININE 0.91 MG/DL (0.60-1.10); GLUCOSE 101 MG/DL (70-104); POTASSIUM 3.8 MMOL/L (3.5-5.1); SODIUM 140 MMOL/L (135-145); TOTAL CARBON DIOXIDE 27.4 MMOL/L (24-32); eGFR 86 ML/MIN
[2020-04-06 08:37] LABS: PARTIAL THROMBOPLASTIN TIME 29 SECONDS (22-32)
[~2020-04-07] VITALS: Ht 182.9 cm; Wt 129.0 kg
[2020-04-07] VITALS (11 sets, daily range): BP systolic 115–166; BP diastolic 66–91
[~2020-04-07 07:20] MED LIST: ACET-2119 PO; ASPI-1265 PO; ATOR10TA PO; DOCU100C40 PO; ERGO500014 PO; HYDR-4353 PO; METO25TA6 PO; OMEP40CA13 PO; TRAM50TA2 PO; VITA-268 PO
[2020-04-07] MEDS ORDERED: acetylcysteine 200 MG/ml 4ml vial PO PRN (07:45)
[2020-04-07] MEDS ORDERED: diphenhydrAMINE 25mg capsule PO PRN (07:45)
[2020-04-07] MEDS ORDERED: ACETAMINOPHEN PO (07:52)
[2020-04-07] MEDS ORDERED: CHOL100044 PO (07:52)
[2020-04-07] MEDS ORDERED: HCTZ25T PO (07:52)
[2020-04-07] MEDS ORDERED: ATOR40TA PO (07:52)
[2020-04-07] MEDS ORDERED: METO25TA6 PO (07:52)
[2020-04-07] MEDS ORDERED: DOCU-171 PO (07:53)
[2020-04-07] MEDS: normal saline 1,000 ML IV SCH ×2 (08:27→12:36)
[2020-04-07] MEDS ORDERED: midazolam 2 mg/2 ml injection ONE (08:33)
[2020-04-07] MEDS ORDERED: fentaNYL/PF 50MCG/1 ML 2ML syringe ONE (08:34)
[2020-04-07] MEDS ORDERED: heparin 1,000unit/ml 10ml vial 10 ML ONE (08:34)
[2020-04-07] MEDS ORDERED: nitroGLYCERIN-Tridil 50MG/D5W 250 ML IV ONE (08:34)
[2020-04-07] MEDS ORDERED: iohexol 350 MG/ML 50ML vial IV ONE (08:34)
[2020-04-07] MEDS ORDERED: iohexol 350MG/ML 100ml bottle IV ONE ×2 (08:34→09:35)
[2020-04-07] MEDS ORDERED: LIDOcaine 1% (10mg/ml)w/preservative injection 20ml MDV ONE (08:34)
[2020-04-07] MEDS ORDERED: LORazepam 0.5 MG tablet PO PRN (08:40)
--- NOTE | 2020-04-07 10:16 | NUR ---
PT RETURNED FROM COMPUTER PROGRAMMING PROFESSOR IN STABLE CONDITION, ALERT, ORIENTED. RIGHT GROIN SITE CDI, NO HEMATOMA, PERCLOSE. SINUS RHYTHM, PEDAL PULSES PRESENT, VITAL SIGNS STABLE. PT DENIES PAIN.
== END 2020-04-07 16:00 | disposition home or self-care (01) ==
LOC: SSTAY O 07:20
PROVIDERS: ATTEND Internal Medicine Cardiovascular Disease
DX: R94.39 Abnormal result of other cardiovascular function study (principal); T82.857A Stenosis of other cardiac prosthetic devices, implants and grafts, initial encounter; I25.10 Atherosclerotic heart disease of native coronary artery without angina pectoris; I10 Essential (primary) hypertension; G47.30 Sleep apnea, unspecified; J44.9 Chronic obstructive pulmonary disease, unspecified; E78.5 Hyperlipidemia, unspecified; M19.90 Unspecified osteoarthritis, unspecified site; F17.290 Nicotine dependence, other tobacco product, uncomplicated; Z95.1 Presence of aortocoronary bypass graft; Z79.899 Other long term (current) drug therapy; Z79.82 Long term (current) use of aspirin; Z98.890 Other specified postprocedural states; Z90.49 Acquired absence of other specified parts of digestive tract; Z82.49 Family history of ischemic heart disease and other diseases of the circulatory system; Z80.9 Family history of malignant neoplasm, unspecified; Y83.8 Other surgical procedures as the cause of abnormal reaction of the patient, or of later complication, without mention of misadventure at the time of the procedure; Y92.89 Other specified places as the place of occurrence of the external cause
CPT/HCPCS: 36415; 76937; 80048; 85025; 85610; 85730; 93005; 93461; 99152; 99153; C1769; J1644; J2001; J2250; J3010; J7030; Q0163; Q9967; 93567; A4620; A6258; C1760; J3490

== ENCOUNTER 2020-04-16 09:36 | Outpatient (CLI) | payer OTHER ==
[~2020-04-16 09:36] MED LIST changes: -ACET-2119 PO; +ACETAMINOPHEN PO; -ATOR10TA PO; +ATOR40TA PO; +CHOL100044 PO; +DOCU-171 PO; -DOCU100C40 PO; -ERGO500014 PO; +HCTZ25T PO; -HYDR-4353 PO
== END 2020-04-16 23:59 | disposition home or self-care (01) ==
LOC: VAS 09:36
PROVIDERS: ATTEND Internal Medicine Cardiovascular Disease
DX: R10.2 Pelvic and perineal pain (principal); L76.32 Postprocedural hematoma of skin and subcutaneous tissue following other procedure
CPT/HCPCS: 93926

== ENCOUNTER 2020-07-29 00:17 | Inpatient (IN) | payer OTHER ==
[2020-07-29] VITALS (11 sets, daily range): BP systolic 131–144; BP diastolic 79–91
[~2020-07-29] VITALS: Ht 182.9 cm; Wt 136.4 kg
[2020-07-29] MEDS ORDERED: aspirin 81mg tab.chew PO ONE (00:30)
[2020-07-29] MEDS ORDERED: nitroGLYCERIN 0.4mg SUBLingual tab SL PRN ×2 (00:30→02:15)
[2020-07-29 01:02] LABS: EOSINOPHILS # (AUTO) 0.1 X10'3 (0-0.9); MEAN CORPUSCULAR VOLUME 86.7 FL (78-98); RED CELL DISTRIBUTION WIDTH 15.4 % (11.5-14.5); WHITE BLOOD COUNT 5.9 X10'3 (4.5-11.0)
[2020-07-29 01:04] LABS: BASOPHILS % (AUTO) 0.5 % (0-1); HEMATOCRIT 46.3 % (42.0-52.0); HEMOGLOBIN 15.3 g/dl (14.0-17.9); LYMPHOCYTES # (AUTO) 1.6 X10'3 (1.1-4.8); MEAN CORPUSCULAR HEMOGLOBIN 28.7 PG (27.0-31.0); MEAN CORPUSCULAR HGB CONC 33.1 g/dL (33.0-36.5); MEAN PLATELET VOLUME 8.9 FL (7.4-10.4); MONOCYTES # (AUTO) 0.4 X10'3 (0-0.9); MONOCYTES % (AUTO) 7.4 % (2-12); NEUTROPHILS # (AUTO) 3.7 X10'3 (1.8-7.7); NEUTROPHILS % (AUTO) 63.1 % (42-75); PLATELET COUNT 138 X10'3 (140-440); RED BLOOD COUNT 5.34 X10'6 (4.70-6.10)
[2020-07-29 01:08] LABS: ALANINE AMINOTRANSFERASE 43 U/L (12-78); ALBUMIN 3.6 G/DL (3.4-5.0); ALBUMIN/GLOBULIN RATIO 0.8 (1.1-1.5); ALKALINE PHOSPHATASE 87 IU/L (46-116); ANION GAP 7 (8-16); ASPARTATE AMINO TRANSFERASE 25 U/L (10-37); BILIRUBIN,TOTAL 0.3 MG/DL (0.1-1.0); CALCIUM 9.5 MG/DL (8.5-10.1); CHLORIDE 106 MMOL/L (99-107); GLUCOSE 98 MG/DL (70-104); POTASSIUM 3.8 MMOL/L (3.5-5.1); SODIUM 140 MMOL/L (135-145); TOTAL CARBON DIOXIDE 27.4 MMOL/L (24-32); TOTAL PROTEIN 8.1 G/DL (6.4-8.2); eGFR 69 ML/MIN
[2020-07-29 01:14] LABS: BLOOD UREA NITROGEN 18 MG/DL (7-18); BUN/CREATININE RATIO 16.4 (5.4-32.0)
--- NOTE | 2020-07-29 01:18 | NUR ---
PT PAIN 12/22, KETAN FOX AWARE AND ORDERED TO NONADMIN NITROGLYCERIN
[2020-07-29] MEDS ORDERED: ATOR40TA72 PO (01:33)
[2020-07-29] MEDS ORDERED: magnesium 2GM in 50ml NS 50 ML IV PRN (02:15)
[2020-07-29] MEDS ORDERED: aminophylline 250mg/10ml inj. IV PRN (02:15)
[2020-07-29] MEDS ORDERED: acetaminophen 325mg tablet PO PRN (02:15)
[2020-07-29] MEDS ORDERED: potassium CL 10mEq/100ml bag 100 ML IV PRN ×2 (02:15)
[2020-07-29] MEDS ORDERED: ondansetron/PF 4mg/2ml inj IV PRN (02:15)
[2020-07-29] MEDS ORDERED: magnesium hydroxide 30ml (MOM) UD suspension PO PRN (02:15)
[2020-07-29] MEDS ORDERED: mag hydrox/Alum hydrox/simeth 30ml oral suspension PO PRN (02:15)
[2020-07-29] MEDS ORDERED: potassium Cl 20 mEq SR tablet PO PRN ×2 (02:15)
[2020-07-29] MEDS ORDERED: regadenoson 0.4mg/5ml syringe IV PRN (02:15)
[2020-07-29] MEDS ORDERED: metoprolol tartrate 1mg/ml inj IV PRN (02:15)
[2020-07-29] MEDS ORDERED: magnesium 4gm in 100ml NS 100 ML IV PRN (02:15)
[2020-07-29] MEDS ORDERED: magnesium Cl slow-release 64mg tablet PO PRN (02:15)
[2020-07-29 02:42] LABS: HEMOGLOBIN A1C 6.1 % (4.5-6.2)
--- NOTE | 2020-07-29 06:28 | NUR ---
Problems reprioritized. Patient report given to BrockRN, questions answered & plan of care reviewed with .
--- NOTE | 2020-07-29 06:29 | NUR ---
patient is alert, oriented x4. No chest pain. Not at any distress. NPO since arrival to the floor. scheduled for [facility] today.
[2020-07-29] MEDS ORDERED: pantoprazole 40mg Tablet.DR PO SCH (07:30)
--- NOTE | 2020-07-29 07:46 | NUR ---
Patient in room MED 316. I have received report from MARISOL Starr and had the opportunity to ask questions and assume patient care.
[2020-07-29] MEDS ORDERED: docusate sod 100mg capsule PO SCH (08:00)
[2020-07-29] MEDS ORDERED: K and/or MAG REPLACEMENT MC SCH (08:00)
[2020-07-29] MEDS ORDERED: metoprolol tartrate 25mg tablet PO SCH (08:00)
[2020-07-29] MEDS ORDERED: aspirin 81mg tab.chew PO SCH (08:00)
[2020-07-29] MEDS ORDERED: atorvastatin 20mg tablet PO SCH (08:00)
[2020-07-29] MEDS ORDERED: traMADol 50MG tablet PO SCH (08:00)
[2020-07-29] MEDS ORDERED: heparin, porcine 5000 units/ml vial SQ SCH (08:00)
[2020-07-29 08:04] LABS: MAGNESIUM 2.1 MG/DL (1.5-2.4)
--- NOTE | 2020-07-29 12:46 | NUR ---
PAGER ID: [phone] MESSAGE: nciole Deluna. Micheal Blanton. pt. webster resulted. please advise. thank you Karen [phone].
[2020-07-29] MEDS ORDERED: LISI-600 PO (13:34)
[2020-07-29] MEDS ORDERED: lisinopril 20mg tablet PO SCH (13:35)
--- NOTE | 2020-07-29 18:52 | NUR ---
pt. discharged from facility at 1545. pt. was walked down to [facility] where he drove his personal car home. pt. signed and understood all paperwork. pt. new meds were escripted to [facility] on [address] and pt. got confirmation text of it. pt. IV was d/c intact. pt. already had an appointment to see Dr. Larose in Aug. pt. left with all belongings.
== END 2020-07-29 15:45 | disposition home or self-care (01) | DRG 392 ==
LOC: ER 00:18 → ED HOLD 02:11 → MED 3N 03:37
PROVIDERS: ADMIT Internal Medicine; ATTEND Family Medicine
PROC: 4A02XM4 Measurement of Cardiac Total Activity, External Approach (ICD-10-PCS; principal; 2020-07-29)
PROC: 3E033HZ Introduction of Radioactive Substance into Peripheral Vein, Percutaneous Approach (ICD-10-PCS; 2020-07-29)
DX: K21.9 Gastro-esophageal reflux disease without esophagitis (principal); I10 Essential (primary) hypertension; I25.119 Atherosclerotic heart disease of native coronary artery with unspecified angina pectoris; M17.10 Unilateral primary osteoarthritis, unspecified knee; Z87.891 Personal history of nicotine dependence; Z95.1 Presence of aortocoronary bypass graft; Z79.899 Other long term (current) drug therapy
CPT/HCPCS: 36415; 71045; 78452; 80053; 83036; 83735; 83880; 84484; 85025; 87081; 93005; 93017; 99285; A9500; G0378; J1644; J2785

== ENCOUNTER 2021-03-03 07:53 | Outpatient (CLI) | payer OTHER ==
[2021-03-03] VITALS (22 sets, daily range): BP systolic 69–148; BP diastolic 34–102
[~2021-03-03 07:53] MED LIST changes: -ACETAMINOPHEN PO; -HCTZ25T PO; +HYDR25TA5 PO; +LOP25T PO; -METO25TA6 PO
== END 2021-03-03 23:59 | disposition home or self-care (01) ==
LOC: CARD DIAG 07:53
PROVIDERS: ATTEND Internal Medicine Cardiovascular Disease
DX: R42 Dizziness and giddiness (principal)
CPT/HCPCS: 93660

== ENCOUNTER 2021-04-06 06:16 | Day surgery (SDC) | payer OTHER ==
[2021-04-05 08:05] LABS: BASOPHILS % (AUTO) 0.6 % (0-1); EOSINOPHILS # (AUTO) 0.1 X10'3 (0-0.9); EOSINOPHILS % (AUTO) 2.1 % (0-6); HEMATOCRIT 44.1 % (42.0-52.0); HEMOGLOBIN 14.9 g/dl (14.0-17.9); LYMPHOCYTES # (AUTO) 1.7 X10'3 (1.1-4.8); LYMPHOCYTES % (AUTO) 32.4 % (21-51); MEAN CORPUSCULAR HEMOGLOBIN 29.8 PG (27.0-31.0); MEAN CORPUSCULAR HGB CONC 33.7 g/dL (33.0-36.5); MEAN CORPUSCULAR VOLUME 88.4 FL (78-98); MEAN PLATELET VOLUME 8.3 FL (7.4-10.4); MONOCYTES # (AUTO) 0.3 X10'3 (0-0.9); MONOCYTES % (AUTO) 6.3 % (2-12); NEUTROPHILS # (AUTO) 3.1 X10'3 (1.8-7.7); NEUTROPHILS % (AUTO) 58.6 % (42-75); PLATELET COUNT 140 X10'3 (140-440); RED BLOOD COUNT 4.99 X10'6 (4.70-6.10); RED CELL DISTRIBUTION WIDTH 14.3 % (11.5-14.5); WHITE BLOOD COUNT 5.3 X10'3 (4.5-11.0)
[2021-04-05 08:13] LABS: ALBUMIN 3.5 G/DL (3.4-5.0); ANION GAP 9 (8-16); BLOOD UREA NITROGEN 14 MG/DL (7-18); BUN/CREATININE RATIO 12.4 (5.4-32.0); CALCIUM 8.8 MG/DL (8.5-10.1); CHLORIDE 105 MMOL/L (99-107); CREATININE 1.13 MG/DL (0.60-1.10); GLUCOSE 115 MG/DL (70-104); SODIUM 142 MMOL/L (135-145); TOTAL CARBON DIOXIDE 27.7 MMOL/L (24-32); eGFR 67 ML/MIN
[2021-04-05 08:16] LABS: PARTIAL THROMBOPLASTIN TIME 29 SECONDS (22-32)
[2021-04-06] VITALS (13 sets, daily range): BP systolic 103–142; BP diastolic 58–89
[~2021-04-06] VITALS: Ht 182.9 cm; Wt 139.3 kg
[2021-04-06] MEDS ORDERED: diphenhydrAMINE 25mg capsule PO PRN (06:40)
[2021-04-06] MEDS ORDERED: LORazepam 0.5 MG tablet PO PRN (06:40)
[2021-04-06] MEDS ORDERED: ISOS30TA84 PO (06:45)
[2021-04-06] MEDS ORDERED: LISI10TA27 PO (06:47)
[2021-04-06] MEDS ORDERED: ACET-1995 PO (06:57)
[2021-04-06] MEDS ORDERED: UBID100C16 PO (06:57)
[2021-04-06] MEDS: normal saline 1,000 ML IV SCH ×2 (07:11→14:19)
[2021-04-06] MEDS ORDERED: midazolam 1 mg/ML 2ml injection ONE (07:15)
[2021-04-06] MEDS ORDERED: LIDOcaine 1% (10mg/ml)w/preservative injection 20ml MDV ONE (07:15)
[2021-04-06] MEDS ORDERED: fentaNYL/PF 50MCG/1 ML 2ML syringe ONE ×2 (07:15→09:00)
[2021-04-06] MEDS ORDERED: heparin 1,000unit/ml 10ml vial 10 ML ONE (07:16)
[2021-04-06] MEDS ORDERED: iohexol 350 MG/ML 50ML vial IV ONE (07:16)
[2021-04-06] MEDS ORDERED: iohexol 350MG/ML 100ml bottle IV ONE (07:16)
[2021-04-06] MEDS ORDERED: nitroGLYCERIN-Tridil 50MG/D5W 250 ML IV ONE (07:17)
[2021-04-06] MEDS ORDERED: traMADol 50MG tablet PO ONE (14:00)
== END 2021-04-06 17:00 | disposition home or self-care (01) ==
LOC: SSTAY O 06:16
PROVIDERS: ATTEND Internal Medicine Cardiovascular Disease
DX: R94.39 Abnormal result of other cardiovascular function study (principal); R53.83 Other fatigue; R06.02 Shortness of breath; I25.810 Atherosclerosis of coronary artery bypass graft(s) without angina pectoris; I10 Essential (primary) hypertension; E78.5 Hyperlipidemia, unspecified; J44.9 Chronic obstructive pulmonary disease, unspecified; G47.30 Sleep apnea, unspecified; E66.9 Obesity, unspecified; Z68.41 Body mass index [BMI] 40.0-44.9, adult; M19.09 Primary osteoarthritis, other specified site; Z98.890 Other specified postprocedural states; F17.210 Nicotine dependence, cigarettes, uncomplicated; Z79.899 Other long term (current) drug therapy; Z79.82 Long term (current) use of aspirin
CPT/HCPCS: 36415; 76937; 80048; 85025; 85610; 85730; 93005; 93459; 99152; 99153; C1760; C1769; C1894; J1644; J2001; J2250; J3010; J7030; Q0163; Q9967; A4620; A6258; J3490

== ENCOUNTER 2021-04-14 02:31 | Emergency (ER) | payer OTHER ==
[~2021-04-14] VITALS: Ht 182.9 cm; Wt 138.1 kg
[~2021-04-14 02:31] MED LIST changes: +ACET-1995 PO; +ISOS30TA84 PO; +LISI10TA27 PO; +UBID100C16 PO
[2021-04-14] MEDS ORDERED: morphine 4 MG/ML inj SYRINge IV PRN (03:05)
[2021-04-14] MEDS ORDERED: ondansetron/PF 4mg/2ml inj IV ONE (03:05)
[2021-04-14] MEDS ORDERED: normal saline 1000ML IV soln IVB ONE (03:05)
[2021-04-14 03:39] LABS: ALANINE AMINOTRANSFERASE 40 U/L (12-78); ALBUMIN 4.2 G/DL (3.4-5.0); ALKALINE PHOSPHATASE 100 IU/L (46-116); ANION GAP 12 (8-16); ASPARTATE AMINO TRANSFERASE 24 U/L (10-37); BILIRUBIN,TOTAL 0.8 MG/DL (0.1-1.0); BLOOD UREA NITROGEN 20 MG/DL (7-18); CALCIUM 9.9 MG/DL (8.5-10.1); CHLORIDE 101 MMOL/L (99-107); CREATININE 1.33 MG/DL (0.60-1.10); GLUCOSE 156 MG/DL (70-104); LIPASE 120 U/L (73-393); POTASSIUM 4.3 MMOL/L (3.5-5.1); SODIUM 140 MMOL/L (135-145); TOTAL CARBON DIOXIDE 26.6 MMOL/L (24-32); TOTAL PROTEIN 8.6 G/DL (6.4-8.2); eGFR 55 ML/MIN
[2021-04-14 03:47] LABS: BASOPHILS % (AUTO) 0.4 % (0-1); EOSINOPHILS % (AUTO) 0.2 % (0-6); HEMATOCRIT 47.3 % (42.0-52.0); HEMOGLOBIN 16.1 g/dl (14.0-17.9); LYMPHOCYTES # (AUTO) 1.1 X10'3 (1.1-4.8); LYMPHOCYTES % (AUTO) 12.6 % (21-51); MEAN CORPUSCULAR HEMOGLOBIN 29.4 PG (27.0-31.0); MEAN CORPUSCULAR VOLUME 86.6 FL (78-98); MEAN PLATELET VOLUME 8.7 FL (7.4-10.4); MONOCYTES # (AUTO) 0.4 X10'3 (0-0.9); MONOCYTES % (AUTO) 4.6 % (2-12); NEUTROPHILS # (AUTO) 6.8 X10'3 (1.8-7.7); NEUTROPHILS % (AUTO) 82.2 % (42-75); PLATELET COUNT 175 X10'3 (140-440); RED BLOOD COUNT 5.46 X10'6 (4.70-6.10); RED CELL DISTRIBUTION WIDTH 13.9 % (11.5-14.5); WHITE BLOOD COUNT 8.3 X10'3 (4.5-11.0)
[2021-04-14] MEDS ORDERED: proCHLORperazine 10 MG/2 ml inj IV ONE (03:55)
[2021-04-14] MEDS ORDERED: fentaNYL/PF 50MCG/1 ML 2ML syringe IV ONE (03:55)
[2021-04-14 07:31] VITALS: BP 109/61
== END 2021-04-14 07:34 | disposition home or self-care (01) ==
LOC: ER 02:32
DX: R10.13 Epigastric pain (principal); R11.2 Nausea with vomiting, unspecified; I25.10 Atherosclerotic heart disease of native coronary artery without angina pectoris; E78.00 Pure hypercholesterolemia, unspecified; I10 Essential (primary) hypertension; I25.2 Old myocardial infarction; F17.200 Nicotine dependence, unspecified, uncomplicated; Z98.890 Other specified postprocedural states; Z72.89 Other problems related to lifestyle; Z79.82 Long term (current) use of aspirin; Z79.899 Other long term (current) drug therapy
CPT/HCPCS: 36415; 76700; 76705; 80053; 83690; 85025; 93005; 96361; 96374; 96375; 99285; J0780; J2270; J2405; J3010; J7030

== ENCOUNTER 2021-04-17 00:12 | Emergency (ER) | payer OTHER ==
[~2021-04-17] VITALS: Ht 182.9 cm; Wt 140.9 kg
[~2021-04-17 00:12] MED LIST changes: -OMEP40CA13 PO; +OMEP40CA21 PO
--- NOTE | 2021-04-17 00:56 | NUR ---
pt to room, assumed care
[2021-04-17] MEDS ORDERED: ondansetron/PF 4mg/2ml inj IV ONE ×2 (02:00→04:20)
[2021-04-17] MEDS ORDERED: morphine 4 MG/ML inj SYRINge IV ONE (02:00)
[2021-04-17] MEDS ORDERED: iohexol 350MG/ML 100ml bottle IV ONE (02:11)
[2021-04-17 02:46] LABS: BASOPHILS % (AUTO) 0.5 % (0-1); EOSINOPHILS % (AUTO) 0.2 % (0-6); HEMATOCRIT 45.1 % (42.0-52.0); HEMOGLOBIN 15.6 g/dl (14.0-17.9); LYMPHOCYTES % (AUTO) 12.6 % (21-51); MEAN CORPUSCULAR HEMOGLOBIN 29.5 PG (27.0-31.0); MEAN CORPUSCULAR HGB CONC 34.6 g/dL (33.0-36.5); MEAN CORPUSCULAR VOLUME 85.2 FL (78-98); MEAN PLATELET VOLUME 8.3 FL (7.4-10.4); MONOCYTES # (AUTO) 0.4 X10'3 (0-0.9); MONOCYTES % (AUTO) 4.7 % (2-12); NEUTROPHILS # (AUTO) 6.4 X10'3 (1.8-7.7); PLATELET COUNT 148 X10'3 (140-440); WHITE BLOOD COUNT 7.8 X10'3 (4.5-11.0)
[2021-04-17 03:04] LABS: ALANINE AMINOTRANSFERASE 37 U/L (12-78); ALBUMIN 3.8 G/DL (3.4-5.0); ALBUMIN/GLOBULIN RATIO 0.9 (1.1-1.5); ALKALINE PHOSPHATASE 91 IU/L (46-116); ANION GAP 11 (8-16); ASPARTATE AMINO TRANSFERASE 23 U/L (10-37); BILIRUBIN,TOTAL 0.9 MG/DL (0.1-1.0); BLOOD UREA NITROGEN 13 MG/DL (7-18); BUN/CREATININE RATIO 12.9 (5.4-32.0); CALCIUM 9.2 MG/DL (8.5-10.1); CHLORIDE 100 MMOL/L (99-107); CREATININE 1.01 MG/DL (0.60-1.10); GLUCOSE 132 MG/DL (70-104); POTASSIUM 3.8 MMOL/L (3.5-5.1); SODIUM 135 MMOL/L (135-145); TOTAL CARBON DIOXIDE 24.1 MMOL/L (24-32); TOTAL PROTEIN 8.1 G/DL (6.4-8.2); eGFR 76 ML/MIN
[2021-04-17 03:11] LABS: LIPASE 116 U/L (73-393); TROPONIN I < 0.04 NG/ML (0.0-0.05)
[2021-04-17] MEDS ORDERED: mag hydrox/Alum hydrox/simeth 30ml oral suspension PO ONE (04:00)
[2021-04-17] MEDS ORDERED: LIDOcaine Viscous 15ml cup MM ONE (04:00)
[2021-04-17] MEDS ORDERED: famotidine/PF 10 mg/ml inj IV ONE (04:20)
[2021-04-17] MEDS ORDERED: ONDA4TAB12 PO (05:05)
[2021-04-17] MEDS ORDERED: FAMO40TA73 PO (05:05)
[2021-04-17 05:20] VITALS: BP 180/103
== END 2021-04-17 05:21 | disposition home or self-care (01) ==
LOC: ER 00:12
DX: R10.13 Epigastric pain (principal); R11.2 Nausea with vomiting, unspecified; R05 Cough; K59.00 Constipation, unspecified; I25.10 Atherosclerotic heart disease of native coronary artery without angina pectoris; E78.00 Pure hypercholesterolemia, unspecified; I10 Essential (primary) hypertension; I25.2 Old myocardial infarction; F17.200 Nicotine dependence, unspecified, uncomplicated; Z98.890 Other specified postprocedural states; Z72.89 Other problems related to lifestyle; Z79.82 Long term (current) use of aspirin; Z79.899 Other long term (current) drug therapy
CPT/HCPCS: 36415; 71045; 71275; 74174; 80053; 83690; 84484; 85025; 93005; 96374; 96375; 96376; 99285; J2270; J2405; J3490; Q9967

== ENCOUNTER 2022-01-09 23:17 | Emergency (ER) | payer BC, OTHER ==
[~2022-01-09] VITALS: Ht 182.9 cm; Wt 141.2 kg
[~2022-01-09 23:17] MED LIST changes: +CHOL10003 PO; -CHOL100044 PO; +FAMO40TA73 PO; +ONDA4TAB12 PO
[2022-01-09 23:36] LABS: BASOPHILS # (AUTO) 0.1 X10'3 (0-0.2); BASOPHILS % (AUTO) 0.7 % (0-1); EOSINOPHILS % (AUTO) 0.6 % (0-6); HEMATOCRIT 47.2 % (42.0-52.0); HEMOGLOBIN 15.8 g/dl (14.0-17.9); LYMPHOCYTES # (AUTO) 1.5 X10'3 (1.1-4.8); LYMPHOCYTES % (AUTO) 21.5 % (21-51); MEAN CORPUSCULAR HEMOGLOBIN 28.4 PG (27.0-31.0); MEAN CORPUSCULAR HGB CONC 33.4 g/dL (33.0-36.5); MEAN CORPUSCULAR VOLUME 85.1 FL (78-98); MONOCYTES # (AUTO) 0.5 X10'3 (0-0.9); MONOCYTES % (AUTO) 6.7 % (2-12); NEUTROPHILS # (AUTO) 4.9 X10'3 (1.8-7.7); NEUTROPHILS % (AUTO) 70.5 % (42-75); PLATELET COUNT 142 X10'3 (140-440); RED BLOOD COUNT 5.54 X10'6 (4.70-6.10); RED CELL DISTRIBUTION WIDTH 15.1 % (11.5-14.5)
[2022-01-09 23:43] VITALS: BP 146/65
[2022-01-09 23:55] LABS: ALANINE AMINOTRANSFERASE 51 U/L (12-78); ALBUMIN 3.9 G/DL (3.4-5.0); ALBUMIN/GLOBULIN RATIO 0.9 (1.1-1.5); ALKALINE PHOSPHATASE 81 IU/L (46-116); ANION GAP 11 (8-16); ASPARTATE AMINO TRANSFERASE 26 U/L (10-37); BILIRUBIN,TOTAL 0.6 MG/DL (0.1-1.0); BLOOD UREA NITROGEN 16 MG/DL (7-18); BUN/CREATININE RATIO 14.5 (5.4-32.0); CALCIUM 9.2 MG/DL (8.5-10.1); CHLORIDE 104 MMOL/L (99-107); GLUCOSE 123 MG/DL (70-104); POTASSIUM 3.7 MMOL/L (3.5-5.1); SODIUM 141 MMOL/L (135-145); TOTAL CARBON DIOXIDE 25.7 MMOL/L (24-32); TOTAL PROTEIN 8.1 G/DL (6.4-8.2); eGFR 69 ML/MIN
[2022-01-10 00:01] LABS: LIPASE 183 U/L (73-393)
== END 2022-01-10 04:08 | disposition home or self-care (01) ==
LOC: ER 23:18
DX: R07.89 Other chest pain (principal); R10.13 Epigastric pain; R42 Dizziness and giddiness; R06.02 Shortness of breath; I25.10 Atherosclerotic heart disease of native coronary artery without angina pectoris; E78.00 Pure hypercholesterolemia, unspecified; I10 Essential (primary) hypertension; I25.2 Old myocardial infarction; G47.30 Sleep apnea, unspecified; Z95.5 Presence of coronary angioplasty implant and graft; Z72.89 Other problems related to lifestyle; Z79.82 Long term (current) use of aspirin; Z79.899 Other long term (current) drug therapy; Z87.891 Personal history of nicotine dependence
CPT/HCPCS: 36415; 71045; 74176; 80053; 83690; 83880; 84484; 85025; 93005; 99285

== ENCOUNTER 2022-05-22 02:08 | Emergency (ER) | payer OTHER ==
[~2022-05-22] VITALS: Ht 182.9 cm; Wt 150.0 kg
[2022-05-22] MEDS ORDERED: pantoprazole 40 MG vial IV ONE (03:15)
[2022-05-22] MEDS: pantoprazole 40MG/NS 100ML BAG 100 ML IV ONE (03:48)
[2022-05-22] MEDS: normal saline 1000ML IV soln IVB ONE (03:48)
[2022-05-22] MEDS: ondansetron/PF 4mg/2ml inj IV ONE (03:48)
[2022-05-22 05:07] LABS: BASOPHILS % (AUTO) 0.4 % (0-1); EOSINOPHILS % (AUTO) 0 % (0-6); HEMOGLOBIN 16.2 g/dl (14.0-17.9); LYMPHOCYTES # (AUTO) 0.9 X10'3 (1.1-4.8); LYMPHOCYTES % (AUTO) 10.9 % (21-51); MEAN CORPUSCULAR HEMOGLOBIN 29.9 PG (27.0-31.0); MEAN CORPUSCULAR HGB CONC 34.5 g/dL (33.0-36.5); MEAN CORPUSCULAR VOLUME 86.9 FL (78-98); MEAN PLATELET VOLUME 8.3 FL (7.4-10.4); MONOCYTES # (AUTO) 0.5 X10'3 (0-0.9); MONOCYTES % (AUTO) 5.7 % (2-12); NEUTROPHILS # (AUTO) 7.1 X10'3 (1.8-7.7); PLATELET COUNT 127 X10'3 (140-440); RED BLOOD COUNT 5.41 X10'6 (4.70-6.10); RED CELL DISTRIBUTION WIDTH 14.2 % (11.5-14.5); WHITE BLOOD COUNT 8.5 X10'3 (4.5-11.0)
[2022-05-22 05:14] LABS: ALANINE AMINOTRANSFERASE 46 U/L (12-78); ALBUMIN 3.7 G/DL (3.4-5.0); ALBUMIN/GLOBULIN RATIO 0.9 (1.1-1.5); ALKALINE PHOSPHATASE 79 IU/L (46-116); ANION GAP 9 (8-16); ASPARTATE AMINO TRANSFERASE 26 U/L (10-37); BILIRUBIN,TOTAL 1.3 MG/DL (0.1-1.0); BLOOD UREA NITROGEN 19 MG/DL (7-18); BUN/CREATININE RATIO 17.1 (5.4-32.0); CALCIUM 8.7 MG/DL (8.5-10.1); CHLORIDE 99 MMOL/L (99-107); CREATININE 1.11 MG/DL (0.60-1.10); GLUCOSE 112 MG/DL (70-104); POTASSIUM 4.2 MMOL/L (3.5-5.1); SODIUM 135 MMOL/L (135-145); TOTAL CARBON DIOXIDE 27.2 MMOL/L (24-32); TOTAL PROTEIN 7.9 G/DL (6.4-8.2); eGFR 68 ML/MIN
[2022-05-22 05:18] LABS: LIPASE 122 U/L (73-393)
[2022-05-22 08:02] VITALS: BP 102/56
== END 2022-05-22 08:06 | disposition home or self-care (01) ==
LOC: ER 02:09
DX: R10.13 Epigastric pain (principal); I10 Essential (primary) hypertension; K21.9 Gastro-esophageal reflux disease without esophagitis
CPT/HCPCS: 36415; 71045; 76700; 80053; 83690; 84484; 85025; 93005; 96365; 96375; 99285; C9113; J2405; J7030

== ENCOUNTER 2023-11-21 18:15 | Emergency (ER) | payer OTHER ==
[~2023-11-21] VITALS: Ht 182.9 cm; Wt 146.2 kg
[2023-11-21 18:22] VITALS: TEMP 97.9
[2023-11-21 18:31] LABS: BASOPHILS # (AUTO) 0.1 X10'3 (0-0.2); BASOPHILS % (AUTO) 0.8 % (0-1); EOSINOPHILS # (AUTO) 0.1 X10'3 (0-0.9); EOSINOPHILS % (AUTO) 1.1 % (0-6); HEMATOCRIT 42.8 % (42.0-52.0); HEMOGLOBIN 14.4 g/dl (14.0-17.9); LYMPHOCYTES # (AUTO) 1.7 X10'3 (1.1-4.8); LYMPHOCYTES % (AUTO) 22.9 % (21-51); MEAN CORPUSCULAR HGB CONC 33.5 g/dL (33.0-36.5); MEAN CORPUSCULAR VOLUME 86.7 FL (78-98); MEAN PLATELET VOLUME 8.2 FL (7.4-10.4); MONOCYTES # (AUTO) 0.7 X10'3 (0-0.9); MONOCYTES % (AUTO) 9.6 % (2-12); NEUTROPHILS # (AUTO) 4.8 X10'3 (1.8-7.7); NEUTROPHILS % (AUTO) 65.6 % (42-75); PLATELET COUNT 174 X10'3 (140-440); RED BLOOD COUNT 4.94 X10'6 (4.70-6.10); RED CELL DISTRIBUTION WIDTH 14.6 % (11.5-14.5); WHITE BLOOD COUNT 7.4 X10'3 (4.5-11.0)
[2023-11-21 18:45] LABS: ALANINE AMINOTRANSFERASE 52 U/L (12-78); ALBUMIN 3.5 G/DL (3.4-5.0); ALBUMIN/GLOBULIN RATIO 0.9 (1.1-1.5); ALKALINE PHOSPHATASE 76 IU/L (46-116); ANION GAP 6 (8-16); ASPARTATE AMINO TRANSFERASE 29 U/L (10-37); BILIRUBIN,TOTAL 0.6 MG/DL (0.1-1.0); BLOOD UREA NITROGEN 39 MG/DL (7-18); BUN/CREATININE RATIO 26.2 (10.0-20.0); CALCIUM 8.9 MG/DL (8.5-10.1); CHLORIDE 98 MMOL/L (99-107); CREATININE 1.49 MG/DL (0.60-1.10); GLUCOSE 88 MG/DL (70-104); SODIUM 134 MMOL/L (135-145); TOTAL CARBON DIOXIDE 29.8 MMOL/L (24-32); TOTAL PROTEIN 7.5 G/DL (6.4-8.2); eCRCL 57 ML/MIN; eGFR 48 ML/MIN
[2023-11-21 18:53] LABS: PRO BRAIN NATRIURETIC PEPTIDE 96 PG/ML (0-125)
[2023-11-22 02:11] VITALS: BP 139/80; PULSE 90; RESP 18; O2SAT 99
== END 2023-11-22 04:08 | disposition home or self-care (01) ==
LOC: ER 18:15
DX: R07.89 Other chest pain (principal); E78.00 Pure hypercholesterolemia, unspecified; I10 Essential (primary) hypertension; K21.9 Gastro-esophageal reflux disease without esophagitis; Z79.82 Long term (current) use of aspirin; Z79.899 Other long term (current) drug therapy
CPT/HCPCS: 36415; 80053; 83880; 84484; 85025; 93005; 99284

== ENCOUNTER 2025-05-30 20:45 | Inpatient (IN) | payer OTHER ==
[~2025-05-30] VITALS: Ht 182.9 cm; Wt 150.0 kg
[~2025-05-30 20:45] MED LIST changes: +ONDA-243 PO; -ONDA4TAB12 PO
--- NOTE | 2025-05-30 20:54 | ELECTROCARDIOGRAPH REPORT ---
[facility] Test Date: 2025-05-30 Test Time: 20:50:33 Pat Name: EDU PULIDO Department: EMERGENCY ROOM Room: [place] [address] Gender: M Labor Supervisor: DT : 1960 Requested By: JOSEPH MORRIS Order Number: [id number] Reading MD: Dr. Del Badillo Measurements Intervals [place] Rate: 87 P: 36 CA: 170 QRS: 22 QRSD: 86 T: 64 QT: 348 QTc: 419 Interpretive Statements Sinus rhythm Low voltage, precordial leads Baseline wander in lead(s) V1 Electronically Signed On 06-03-2025 19:16:[address] Del Badillo Please click the below link to view image of tracing.
[2025-05-30 21:31] LABS: MEAN PLATELET VOLUME 8.1 FL (7.4-10.4); RED CELL DISTRIBUTION WIDTH 14.4 % (11.5-14.5)
--- NOTE | 2025-05-30 21:33 | RADIOLOGY REPORT ---
CHEST RADIOGRAPH REASON FOR EXAM: Chest pain COMPARISON: CHEST,SINGLE VIEW on DOS: 05/22/22, CHEST,SINGLE VIEW on DOS: 01/09/22, CHEST,SINGLE VIEW o n DOS: 04/17/21 TECHNIQUE: One view of the chest is provided FINDINGS: The cardiomediastinal silhouette is mildly enlarged. There are surgical changes in the medi astinum. There is no focal airspace disease. There is no significant pleural effusion. There is no pn eumothorax. No acute osseous abnormality is identified. IMPRESSION: Mild cardiomegaly. No radiographic evidence of acute cardiopulmonary process.
--- NOTE | 2025-05-30 21:42 | Physician Documentation ---
History of Present Illness ~ Chief Complaint: Chest Pain Stated Complaint: CHEST PAIN Time Seen by MD: 20:52 Primary Medical Doctor: DANIEL: [place]; Mobile Ui/Ux Designer: Sloan Source: patient Mode of Arrival: EMS, Stretcher Exam Limitations: no limitations HPI Chief Complaint: Chest pain Caveat: None Independent Historians: Paramedics History of Present Illness: Patient is a 64-year-old man with known coronary artery disease and hypertension presents with lower substernal and epigastric pain. This began approximately 1 hour prior to arrival. Patient states that the pain is having this similar to his prior SC in August 2019 prior to his CABG x4. Patient had some associated nausea. Patient took four baby aspirin. Patient was brought in by paramedics and the paramedics provided to sublingual nitroglycerin which seemed to resolve his pain. His pain was severe but has since resolved. Patient describes the pain as a squeezing pain. Patient is followed by Dr. Larose and last had a negative stress test July of last year. Review of systems: All systems were reviewed and are negative except for what is indicated in the history of present illness. Past Medical History: HTN, HLD, CAD, type 2 diabetes Past Surgical History: August, CABG x4 Social History: Former smoker, no alcohol use, no drug use Medications: Reviewed as documented Nursing Notes Allergies: Reviewed as documented in Nursing Notes Medication Reconciliation Allergies: Coded Allergies: No Known Allergies (Unverified , 05/30/25) Scheduled Aspirin (Aspirin), 1 TAB.CHEW PO DAILY, (Reported) Atorvastatin Calcium* (Lipitor*), 1 TAB PO DAILY, (Reported) Cholecalciferol (Vitamin D3) (Vitamin D3), 1 TAB PO DAILY, (Reported) Docusate Sodium (Dulcolax Stool Softener), 1 CAP PO DAILY, (Reported) Famotidine (Pepcid), 1 TABLET PO DAILY Hydrochlorothiazide (Hydrochlorothiazide), 0.5 TAB PO DAILY, (Reported) Isosorbide Mononitrate (Isosorbide Mononitrate Er), 1 TAB PO DAILY, (Reported) Lisinopril (Lisinopril), 0.5 TAB PO DAILY, (Reported) Metoprolol Tartrate* (Lopressor tablet*), 1 TAB PO Q12H, (Reported) Omeprazole (Prilosec), 40 MG PO DAILY, (Reported) Tramadol HCl (Tramadol HCl), 50 MG PO DAILY, (Reported) Ubidecarenone (Coq-10), 200 MG PO DAILY, (Reported) Vitamin B Complex (B Complex), 1 EACH PO DAILY, (Reported) Scheduled PRN Acetaminophen (Acetaminophen Extra Strength), 2 TAB PO Q6H PRN for pain, (Reported) ONDANSETRON ODT 4mg tablet (Ondansetron Odt), 1 TABLET PO Q6H PRN for nausea/vomiting Past Medical History Past Medical History: Coronary Artery Disease, High Cholesterol, Hypertension, Myocardial Infarction, Sleep Apnea, GERD, Hernia Past Surgical History: coronary bypass surgery, orthopedic surgeries Alcohol Use: Sober Drug Use: none Lives In: Home Physical Exam Vital Signs: Heart Rate: 88, Respiratory Rate: 18, BP: 113/59, Pulse Oximetry: 97, Weight: 150.000 Progress Results/Orders Results/Orders Orders - JOSEPH MORRIS MD Chest,Single View (05/30/25 20:52) Monitor (05/30/25 20:52) Saline Lock (05/30/25 20:52) Oxygen (05/30/25 20:52) Hs Troponin I W Calculations (05/30/25 23:52) Page Hospitalist (05/30/25 22:26) Fill Out Med Reconciliation (05/30/25 22:26) Completed Orders - JOSEPH MORRIS MD Chest,Single View (05/30/25 20:52) Cbc/Diff (05/30/25 20:52) BMP (05/30/25 20:52) PBNP (05/30/25 20:52) Electrocardiogram (05/30/25 20:52) Hs Troponin I W Calculations (05/30/25 20:52) Hs Troponin I W Calculations (05/30/25 22:52) Nitroglycerin 0.4mg/Hr Patch (Nitro-Dur (05/30/25 22:35) Medications Received in ER Medications (Trade) Dose Ordered Sig/Nicholas Route PRN Reason Start Time Stop Time Status Last Admin Dose Admin (Nitro-Dur 0.4mg/ hour Patch) 1 patch ONCE ONCE TD 05/30/25 22:35 05/30/25 22:36 DC 05/30/25 22:47 1 PATCH Vital Signs 05/30/25 05/30/25 20:48 20:59 Pulse 88 Resp 18 18 B/P (MAP) 113/59 Pulse Ox 97 Laboratory Tests Test 05/30/25 21:21 White Blood Count 6.3 Red Blood Count 4.48 L Hemoglobin 13.1 L Hematocrit 38.6 L Mean Corpuscular Volume 86.1 Mean Corpuscular Hemoglobin 29.3 Mean Corpuscular Hemoglobin Concent 34.0 Red Cell Distribution Width 14.4 Platelet Count 135 L Mean Platelet Volume 8.1 Neutrophils (%) (Auto) 74.4 Lymphocytes (%) (Auto) 18.2 L Monocytes (%) (Auto) 5.0 Eosinophils (%) (Auto) 1.8 Basophils (%) (Auto) 0.6 Neutrophils # (Auto) 4.7 Lymphocytes # (Auto) 1.1 Monocytes # (Auto) 0.3 Eosinophils # (Auto) 0.1 Basophils # (Auto) 0.0 CBC Comment Sodium Level 137 Potassium Level 3.7 Chloride Level 105 Carbon Dioxide Level 25.2 Anion Gap 7 L Blood Urea Nitrogen 11 Creatinine 0.92 Estimated GFR/1.73 m2 83 BUN/Creatinine Ratio 12.0 Glucose Level 145 H Calcium Level 8.5 Troponin I High Sensitivity 16 Pro-B-Type Natriuretic Peptide 99 Albumin 3.0 L Chemistry Comments Medical Decision Making Findings Differential diagnosis includes but is not limited to: Acute coronary syndrome, aortic dissection, pulmonary embolus, pericarditis, gastritis, biliary colic, esophageal spasm EKG independent interpretation: Performed at 8:50 p.m.. Normal sinus rhythm, heart rate 87, normal axis, low voltage, normal ST segments Chest x-ray, single view, indication: Chest pain Independent interpretation: Lungs are clear, normal mediastinum, mild cardiomegaly Laboratory data independent interpretation: CBC: Mild anemia with a hemoglobin of 13.1, otherwise unremarkable BMP: Unremarkable Troponin: 16 Second troponin: 16 Pro BNP: 99 Emergency department course/medical decision-making: Patient presents with chest pain is symptoms concerning for acute coronary syndrome. Patient's chest pain seemed to resolved with the sublingual nitro provided by the paramedics. No ischemic changes on the EKG. Chest x-ray is unremarkable. First troponin is negative. Test results and treatment plan reviewed with the patient. I will recommend admission for further cardiac workup. Patient is currently chest pain free. Consultation/communications: THIRTY 5:00 P.M.: CASE DISCUSSED WITH OUR RESIDENT HOSPITALIST, LEE BAILEY, SHE WILL EVALUATE THE PATIENT FOR ADMISSION. Heart Score: 5 Differential Dx:Considerations: Include: angina, aortic dissection, chest wall pain, cholelithiasis, CHF, costochondritis, esophageal reflux/spasm, gastritis, herpes zoster, myocardial infarction, pericarditis, pleuritis, pulmonary embolus Departure Time of Disposition: 21:39 Disposition: ADMITTED INPATIENT Admitted to Inpatient Unit: to hospitalist Admission Level of Care: Med/Surg with Tele Impression: Primary Impression: Chest pain Qualified Codes: R07.9 - Chest pain, unspecified Condition: Fair Education Educated: Patient Educated regarding: diagnosis, treatment Signature Scribe Signature: No scribe Attestation: No scribe JOSEPH MORRIS MD May 30, 2025 21:42
[2025-05-30 21:55] LABS: CREATININE 0.92 MG/DL (0.60-1.10); PRO BRAIN NATRIURETIC PEPTIDE 99 PG/ML (0-125); TOTAL CARBON DIOXIDE 25.2 MMOL/L (24-32); eCRCL 91 ML/MIN; eGFR 83 ML/MIN
[2025-05-30] MEDS ORDERED: magnesium sulf-water 4G/100mL 100 ML IV PRN (23:25)
[2025-05-30] MEDS ORDERED: potassium Cl 20 mEq SR tablet PO PRN ×2 (23:25)
[2025-05-30] MEDS ORDERED: potassium Cl 40MEQ/1/2NS 520ml 520 ML IV PRN (23:25)
[2025-05-30] MEDS ORDERED: ondansetron/PF 4mg/2ml inj IV PRN (23:25)
[2025-05-30] MEDS ORDERED: magnesium Cl slow-release 64mg tablet PO PRN (23:25)
[2025-05-30] MEDS ORDERED: mag hydrox/Alum hydrox/simeth 30ml oral suspension PO PRN (23:25)
[2025-05-30] MEDS ORDERED: HYDROcodone/acetaminophen 10/325mg tab PO PRN (23:25)
[2025-05-30] MEDS ORDERED: magnesium sulf-water 2g/50mL 50 ML IV PRN (23:25)
[2025-05-31] VITALS (17 sets, daily range): BP systolic 77–133; BP diastolic 46–83; PULSE 56–93; RESP 12–19; TEMP 97.4–98.7; O2SAT 96–99
[2025-05-31] MEDS ORDERED: metoprolol tartrate 1mg/ml inj IV PRN (00:15)
[2025-05-31] MEDS ORDERED: aminophylline 500mg/20ml vial IV PRN (00:15)
[2025-05-31] MEDS ORDERED: dextrose 50%-water 50ml dispensing syringe IV PRN ×2 (00:20)
[2025-05-31] MEDS ORDERED: glucagon, human recombinant 1mg kit SUBCUT PRN (00:20)
[2025-05-31] MEDS ORDERED: DEXTROSE 15 GM of carb/4 tabs (each vial/BOTTLE has 4 tablets) PO PRN ×2 (00:20)
--- NOTE | 2025-05-31 00:24 | HISTORY AND PHYSICAL-Residence ---
History & Physical Providers to CC Resident Creating Document: PILY ESPINOZA RES ~ History of Present Illness Primary Medical Doctor: DANIEL: [place]; Copy Operator: Sloan Reason for Admit\Complaint: ANGINA History of Present Illness 64-year-old male with history of CAD status post CABG x4, hypertension, diabetes sent to the ED with chief complaints of chest pain. Pain started approximately 1 hour prior to arrival to the ED. he was in the bathroom and started experiencing retrosternal chest pain, radiating to the back. Squeezing type of chest pain, lasted for about an hour. Had taken four baby aspirins, after which he had nausea which lasted for about 5 minutes. Currently he is chest pain- free. Denies diaphoresis, fevers/chills, nasal congestion, expectoration, palpitations, or weight loss/weight gain. He has had similar episodes in the past, but has never lasted this long. In 2019 he was diagnosed to have CAD requiring CABG x4. Follows up with Dr. Larose residential nurse, he has seen him in March 2025 for cardiac clearance prior to his hip surgery which is scheduled for June 08, 2025. Stopped drinking and smoking in 2019. Denies recreational drug use. Discussed advanced care directives and he wishes to be a full code. Allergies: Coded Allergies: No Known Allergies (Unverified , 05/30/25) Home Medications Home Medications Active Ondansetron Odt (Ondansetron HCl) 4 Mg Tab.rapdis 1 Tablet PO Q6H PRN Pepcid (Famotidine) 40 Mg Tablet 1 Tablet PO DAILY may sub any h2 teressa per formulary at high dose Reported Coq-10 (Ubidecarenone) 100 Mg Capsule 200 Mg PO DAILY Acetaminophen Extra Strength (Acetaminophen) 500 Mg Tablet 2 Tab PO Q6H PRN Lisinopril 10 Mg Tablet 0.5 Tab PO DAILY Isosorbide Mononitrate Er (Isosorbide Mononitrate) 30 Mg Tab.er.24h 1 Tab PO DAILY Dulcolax Stool Softener (Docusate Sodium) 100 Mg Capsule 1 Cap PO DAILY 30 Days Hydrochlorothiazide 25 Mg Tab 0.5 Tab PO DAILY 30 Days Vitamin D3 (Cholecalciferol (Vitamin D3)) 25 Mcg Tablet 1 Tab PO DAILY Lopressor tablet* (Metoprolol Tartrate) 25 Mg Tablet 1 Tab PO Q12H 30 Days Lipitor* (Atorvastatin Calcium) 40 Mg Tablet 1 Tab PO DAILY 30 Days B Complex (Vitamin B Complex) 1 Each Tablet 1 Each PO DAILY Aspirin 81 Mg Tab.chew 1 Tab.chew PO DAILY Tramadol HCl 50 Mg Tablet 50 Mg PO DAILY Prilosec (Omeprazole) 40 Mg Capsule 40 Mg PO DAILY 30 Days Past Medical History Past Medical History Hypertension Diabetes type 2 CAD Past Surgical History Surgical History Comment CABG x4 2019 Right thumb surgery Past Social History Alcohol Use: Sober Drug Use: None Lives In: Home ROS ROS Reviewed in full. All negative except for pertinent positive HPI. Exam Vitals: Vital Signs Date Time Temp Pulse Resp B/P (MAP) Pulse Ox O2 Delivery O2 Flow Rate FiO2 05/30/25 22:57 98.7 77 18 130/88 (102) 05/30/25 20:48 97 General: General: Morbidly obese, Awake and Alert, no acute distress. HEENT: Conjunctiva pink, Sclera clear, Mucus Membranes moist. Neck: Supple without masses and tenderness. Resp: Unlabored. Equal breath sounds bilaterally. Heart: Regular rhythm, normal S1 and S2, no rub, murmur or gallop. Abdomen: Soft and non tender no organomegaly. Normal bowel sounds x4 quadrant normoactive. No guarding or rigidity. Extremities: Normal ROM, no swelling, nontender. No cyanosis,clubbing or edema. METAL BUGGY OPERATOR: No gross motor or sensory abnormalities. Skin: CABG scar. Otherwise: Warm and Dry. Diagnostic Data Last Recorded Lab Results: 05/30/25212005/30/252120 Advance Care Planning Advanced Care plannin - 30 Minutes Additional Plan 64-year-old male with history of CAD status post CABG x4, hypertension, diabetes sent to the ED with chief complaints of chest pain. Chest pain, heart score 4 Rule out ACS EKG: Normal sinus rhythm, no ST/T-wave changes seen Troponins within normal limits, follow up with trend Electrolytes within normal limits Aspirin 81 mg po daily, statin 40 p.o. daily and beta teressa Lopressor 25 p.o. b.i.d. Pepcid 40 mg p.o. daily Lipid profile, TSH ordered, UA UTox, follow up with results Telemetry monitoring, echo ordered follow up with results NM Esdras Hypertension Diabetes type 2 On hyper/hypoglycemia protocol Awaiting med rec Code Status: Full code DVT prophylaxis: Heparin Analgesia/sedation: None Line/tube: PIV GI prophylaxis: Pepcid Nutrition: Heart healthy Prognosis: Guarded Disposition: Continue medical management. Pily Espinoza MD. IM Resident PGY-3 Patient evaluated with the resident using HIPPA compliant AV device Agree with plan as discussed with the resident Jenny Soto MD Date of Service: May 31, 2025 Billing Provider: JENNY SOTO MD, ELIZABETH, [facility] May 31, 2025 00:24 JENNY SOTO MD May 31, 2025 04:09
[2025-05-31] MEDS: HYDROcodone/acetaminophen 5mg/325mg tablet PO PRN (01:30)
[2025-05-31] MEDS: normal saline 1000ml 1,000 ML IV SCH (01:31)
[2025-05-31] MEDS: pantoprazole 40mg Tablet.DR PO ONE (02:04)
[2025-05-31] MEDS: MESSAGE TO NURSING PO ONE (06:15)
[2025-05-31 06:27] LABS: MEAN PLATELET VOLUME 7.7 FL (7.4-10.4); RED CELL DISTRIBUTION WIDTH 14.8 % (11.5-14.5)
[2025-05-31 06:42] LABS: INR 1.0 INR
[2025-05-31 06:57] LABS: CHOL/HDL RATIO 4.0 (0.00-4.99); CREATININE 0.88 MG/DL (0.60-1.10); LDL CHOLESTEROL 68 MG/DL (50-100); PHOSPHORUS 5.0 MG/DL (2.3-4.5); TOTAL CARBON DIOXIDE 29.6 MMOL/L (24-32); eCRCL 96 ML/MIN; eGFR 88 ML/MIN
[2025-05-31] MEDS: INSULIN LISPRO 100 UNIT/ML INSULN.PEN MULTI-DOSE SQ SCH ×2 (07:00→09:00)
[2025-05-31] MEDS: heparin, porcine 5000 units/ml vial SQ SCH (07:49)
[2025-05-31] MEDS: K and/or MAG REPLACEMENT MC SCH (07:49)
[2025-05-31] MEDS: docusate sod 100mg capsule PO SCH (07:53)
[2025-05-31] MEDS: isosorbide mononitrate 30mg tab.SR.24H PO SCH (07:54)
[2025-05-31] MEDS ORDERED: non-formulary drug (Vitamin B Complex (B Complex) 1 EACH) PO SCH (08:00)
[2025-05-31] MEDS ORDERED: non-formulary drug (Ubidecarenone (Coq-10) 200 MG) PO SCH (08:00)
[2025-05-31] MEDS ORDERED: aminophylline inj. 0 ML IV ONE (09:04)
[2025-05-31] MEDS ORDERED: aminophylline 250mg/10ml inj. IV PRN (09:10)
[2025-05-31] MEDS: regadenoson 0.4mg/5ml syringe IV PRN (09:31)
--- NOTE | 2025-05-31 11:56 | RADIOLOGY REPORT ---
Procedure: NM NM SHANKAR SCAN Exam Date: 05/31/2025 08:27 AM Reason for study/Clinical History: chest pain, Comparison Study: None Myocardial Perfusion Study with SPECT Technique: The patient received an intravenous injection of 8.6 mCi of technetium-99m sestamibi whil e at rest. After a short delay, SPECT tomographic images of the heart were obtained. The patient th en went to the stress lab where they received an intravenous Lexiscan utilizing standard protocol. 3 4.9 mCi of technetium-99m sestamibi was injected intravenously immediately after the start of the i nfusion. Gated SPECT tomographic images of the heart were acquired and processed. Findings: Rotating planar images show no significant attenuation artifact. The left ventricular size is within normal limits. Stress tomographic images demonstrate normal perfusion. Resting tomographic images demonstrate a similar pattern. Gated portion of the study shows normal wall motion and myocardial thickening. The left ventricular ejection fraction is 36%. (normal greater than 50%) Impression: The left ventricular Apical wall infarction. No evidence for ischemic changes. ejection fraction is 36%.
--- NOTE | 2025-05-31 19:28 | PROGRESS NOTE ---
Daily Progress Note Providers to CC ~ Antibiotic Timeout Antibiotic Ordered?: No Subjective The patient had a short episode of chest pain earlier prior to the Lexiscan stress test. The patient has Lexiscan stress test was negative for reversible ischemia however the patient has has a prior infarct and has has a CABG. The patient has no acute complaints Objective Vital Signs Date Time Temp Pulse Resp B/P (MAP) Pulse Ox O2 Delivery O2 Flow Rate FiO2 05/31/25 15:00 97.4 93 16 99/56 (70) 96 Room Air 05/31/25 02:00 2.0 Result Diagram: 05/31/25 0611 05/31/25 06 Gen. No acute distress alert and oriented 4 Lungs clear to ascultation bilaterally, no wheezes rales or rhonchi appreciated Heart normal sinus rhythm no murmurs rubs or clicks noted Abdomen soft nontender bowel sounds are normoactive Lower extremities no clubbing cyanosis, nor edema appreciated bilaterally Coagulation Studies Laboratory Tests Test 05/31/25 06:11 Prothrombin Time 10.3 SECONDS (9.0-12.0) INR International Normalized Ratio 1.0 INR Coagulation Comments Problem\Assessment\Plan #Chest pain with a heart score of fou4 ACS is ruled out Stress test is negative for reversible ischemia Echocardiogram demonstrated LVEF of 45-50% on the preliminary repor tAspirin 81 mg po daily, statin 40 p.o. daily and beta teressa Lopressor 25 p.o. b.i.d. Pepcid 40 mg p.o. daily # diabetes mellitus type 2 And a hyper and hypoglycemic protocol # hypertension Blood pressure is under acceptable control Disposition: Anticipate discharge in the a.m. Date of Service: May 31, 2025 Billing Provider: MALIKA MATHEW DO Common Visit Codes: [id number] INP/OBS CARE(HIGH) MALIKA MATHEW DO May 31, 2025 19:28
[2025-06-01 02:00] VITALS: BP 118/60; PULSE 70; RESP 20; TEMP 98.1; O2SAT 97
[2025-06-01 02:44] LABS: URINE AMPHETAMINE SCREEN NEGATIVE (Neg); URINE BARBITUATE SCREEN NEGATIVE (Neg); URINE BENZODIAZEPINES SCREEN NEGATIVE (Neg); URINE CANNABINOID SCREEN NEGATIVE (Neg); URINE COCAINE SCREEN NEGATIVE (Neg); URINE METHADONE SCREEN NEGATIVE (Neg); URINE OPIATE SCREEN NEGATIVE (Neg); URINE PHENCYCLIDINE SCREEN NEGATIVE (Neg)
[2025-06-01 02:59] LABS: LEUKOCYTE ESTERASE ,URINE NEGATIVE (Neg); NITRITES, URINE NEGATIVE (Neg); OCCULT BLOOD,URINE NEGATIVE (Neg)
[2025-06-01 03:01] LABS: UA COLLECTION TYPE NON-SPECIFIED
[2025-06-01 06:00] VITALS: BP 97/51; PULSE 74; RESP 14; TEMP 98; O2SAT 99
[2025-06-01 06:25] LABS: MEAN PLATELET VOLUME 8.0 FL (7.4-10.4); RED CELL DISTRIBUTION WIDTH 14.7 % (11.5-14.5)
[2025-06-01 06:31] LABS: CREATININE 0.91 MG/DL (0.60-1.10); PHOSPHORUS 3.8 MG/DL (2.3-4.5); TOTAL CARBON DIOXIDE 26.6 MMOL/L (24-32); eCRCL 92 ML/MIN; eGFR 84 ML/MIN
[2025-06-01 11:00] VITALS: BP 112/81; PULSE 97; RESP 16; TEMP 97.5; O2SAT 96
--- NOTE | 2025-06-01 16:40 | CARDIOLOGY REPORT ---
APPROVED REPORT EXAM: Comprehensive 2D, Doppler, and color-flow Echocardiogram. Patient Location: [facility] B Blood Pressure: 100/55 mmHg Heart Rate: 84 bpm Rhythm: Sinus Indications Angina/Chest Pain Normal Troponins Hx of CAD CABG X 4 (2019) Hypertension Diabetes Mellitus II Computer Graphic Designer: MD Susie Previous echo: 08/30/2019 [facility] CVOR REG EF: 50-55% on Levophed at 1 mcg/kg/min 2D Dimensions RVDd 4.3 cm LA Diam4.5 cm IVSd 1.0 (0.7-1.1cm) LVDd 5.9 cm PWd 1.0 (0.7-1.1cm) IVSs 1.0 (0.8-1.2cm) LVDs 4.6 (2.5-4.0cm) PWs 1.1 (0.8-1.2cm) LVOT Diameter 2.06 (1.8-2.4cm) LVEF(%) 44.2 (>50%) FS (%) 22.2 % SV 75.5 ml CO 4.6 L/min M-Mode Dimensions RVDd 2.59 (2.1-3.2cm) IVSd 1.25 (0.7-1.1cm) LVDd 5.43 (4.0-5.6cm) Aortic Root 3.94 (2.2-3.7cm) PWd 1.34 (0.7-1.1cm) Aortic Cusp Exc 1.92 (1.5-2.0cm) IVSs 1.34 cm LVDs 4.36 (2.0-3.8cm) FS (%) 22 % PWs 1.38 cm ESV(Teich) 61.6 ml LVEF(%) 45 (>50%) Aortic Valve AoV Peak Raymond. 113.2 cm/s AoV VTI 17.4 cm AO Peak GR. 5.1 mmHg AO Mean GR. 3 mmHg LVOT VTI 15.32 cm LVOT Peak Raymond. 92.7 cm/s LUISA(VTI)/BSA 2.93 cm2/m2 LUISA (VTI) 2.93 cm2 Mitral Valve MV E Velocity 47.6 cm/s MV Peak Gr. 3 mmHg MV DECEL TIME 188 ms MV A Velocity 52.3 cm/s MV Mean Gr. 1 mmHg MV PHT 64 ms E/A Ratio 0.9 MVA (PHT) 3.44 cm2 MV VMax79.3 cm/sMV VMean53.0 cm/s MVA VTI3.00 cm2MV VTI17.0 cm Tricuspid Valve TR P. Velocity 270 cm/s RAP ESTIMATE 10 mmHg TR Peak Gr. 29 mmHg RVSP 39 mmHg LEFT VENTRICLE Normal LV size and function. Mild concentric hypertrophy. Left ventricular systolic function appears mildly reduced. Overall LVEF is around 50%. Technically difficult study. RIGHT VENTRICLE Right ventricle is moderate to severely dilated with reduced systolic function. Estimated PA systolic pressure is 39 mmHg. ATRIA Left atrium appears moderately dilated. AORTIC VALVE Trileaflet AV appears sclerotic without stenosis or insufficiency. MITRAL VALVE Mild MV annular calcification without stenosis. Mild regurgitation. TRICUSPID VALVE TV appears structurally normal with trace regurgitation. PULMONIC VALVE Pulmonic valve is not well visualized. GREAT VESSELS Aortic root is dilated and measures at 3.9 cm. IVC is not well visualized. PERICARDIUM Normal pericardium. No pericardial effusion. Other Information Study Quality: Poor. TDS due to body habitus. Conclusion Overall LVEF is around 50%. Technically difficult study. Normal LV size and function. Mild concentric hypertrophy. Left ventricular systolic function appears mildly reduced. Right ventricle is moderate to severely dilated with reduced systolic function. Estimated PA systolic pressure is 39 mmHg. Trileaflet AV appears sclerotic without stenosis or insufficiency. TV appears structurally normal with trace regurgitation. Pulmonic valve is not well visualized. Normal pericardium. No pericardial effusion.
--- NOTE | 2025-06-01 19:57 | DISCHARGE SUMMARY ---
Discharge Summary Providers to CC ~ Discharge Summary Admission Diagnosis: CHEST PAIN Hospital Course DATE OF ADMISSION: 05/30/2025 DATE OF DISCHARGE: 06/01/2025 Discharge Diagnosis\\Comment: Chest pain possibly secondary to esophagitis mi ruled out, [id number] diabetes mellitus, hypertension Operations\\Procedures: None Consultants: None Complications: None Condition on DC: Stable Continued Medications: Acetaminophen (Acetaminophen Extra Strength) 500 Mg Tablet 2 TAB PO Q6H PRN for pain, TAB Aspirin (Aspirin) 81 Mg Tab.chew 1 TAB.CHEW PO DAILY, TAB.CHEW Atorvastatin Calcium* (Lipitor*) 40 Mg Tablet 1 TAB PO DAILY for 30 Days, #30 TAB Cholecalciferol (Vitamin D3) (Vitamin D3) 25 Mcg Tablet 1 TAB PO DAILY Docusate Sodium (Dulcolax Stool Softener) 100 Mg Capsule 1 CAP PO DAILY for 30 Days, #30 CAP 0 Refills Famotidine (Pepcid) 40 Mg Tablet 1 TABLET PO DAILY, #30 TABLET 1 Refill may sub any h2 teressa per formulary at high dose Hydrochlorothiazide (Hydrochlorothiazide) 25 Mg Tab 0.5 TAB PO DAILY for 30 Days, #30 TAB 0 Refills Isosorbide Mononitrate (Isosorbide Mononitrate Er) 30 Mg Tab.er.24h 1 TAB PO DAILY Lisinopril (Lisinopril) 10 Mg Tablet 0.5 TAB PO DAILY, TAB Metoprolol Tartrate* (Lopressor tablet*) 25 Mg Tablet 1 TAB PO Q12H for 30 Days, #60 TAB Omeprazole (Prilosec) 40 Mg Capsule 40 MG PO DAILY for 30 Days, #30 CAP ONDANSETRON ODT 4mg tablet (Ondansetron Odt) 4 Mg Tab.rapdis 1 TABLET PO Q6H PRN for nausea/vomiting, #16 TABLET Tramadol HCl (Tramadol HCl) 50 Mg Tablet 50 MG PO DAILY, #30 TABLET Ubidecarenone (Coq-10) 100 Mg Capsule 200 MG PO DAILY, CAP Vitamin B Complex (B Complex) 1 Each Tablet 1 EACH PO DAILY, TAB Discharge Summary: The patient was admitted by resident physician GLEN Donahue, under the supervision of JENNY Bailey MD with the following HPI:"64-year-old male with history of CAD status post CABG x4, hypertension, diabetes sent to the ED with chief complaints of chest pain. Pain started approximately 1 hour prior to arrival to the ED. he was in the bathroom and started experiencing retrosternal chest pain, radiating to the back. Squeezing type of chest pain, lasted for about an hour. Had taken four baby aspirins, after which he had nausea which lasted for about 5 minutes. Currently he is chest pain-free. Denies diaphoresis, fevers/chills, nasal congestion, expectoration, palpitations, or weight loss/weight gain. He has had similar episodes in the past, but has never lasted this long. In 2019 he was diagnosed to have CAD requiring CABG x4. 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 Stopped drinking and smoking in 2019. Denies recreational drug use. Discussed advanced care directives and he wishes to be a full code." The patient had a mild episode of chest pain prior to the Lexiscan stress test which was negative for any reversible ischemia however was positive for an infarct which the patient has had a prior SD and CABG. An echocardiogram was obtained which demonstrates an LVEF of proximally 50% and moderate severe right ventricular dilatation with a PA systolic pressure of 39 mm Hg. The patient has hypertension which was under acceptable control in his home medications were continued hydrochlorothiazide and lisinopril and metoprolol The patient has [id number] diabetes mellitus hemoglobin A1c is 6.6 his blood sugars were controlled during hospitalization that has not meet p rotocol. Gen. No acute distress alert and oriented 4 Lungs clear to ascultation bilaterally, no wheezes rales or rhonchi appreciated Heart normal sinus rhythm no murmurs rubs or clicks noted Abdomen soft nontender bowel sounds are normoactive Lower extremities no clubbing cyanosis, nor edema appreciated bilaterally The patient felt ready to be discharged and was medically cleared to be discharged on 06/01/2025 the patient was chest pain-free on the day of discharge The patient was seen and evaluated on day of discharge. Time spent on discharge 40 minutes *Problems/Diagnosis: (1) Chest pain Status: Acute Total Time Spent on D/C: > 30 Minutes Date of Service: Jun 01, 2025 Billing Provider: ROBACK,MALIKA T DO Common Visit Codes: 95819-LAI/OBS DISCH DAY >30min Problem Qualifiers (1) Chest pain: Qualified Codes: R07.9 - Chest pain, unspecified MALIKA MATHEW DO Jun 01, 2025 19:57
== END 2025-06-01 12:45 | disposition home or self-care (01) | DRG 392 ==
LOC: ER 20:45 → ED HOLD 22:38 → PCU 3S 05-31 00:17
PROVIDERS: ADMIT Internal Medicine; ATTEND Family Medicine
PROC: 4A02XM4 Measurement of Cardiac Total Activity, External Approach (ICD-10-PCS; principal; 2025-05-31)
PROC: 3E033HZ Introduction of Radioactive Substance into Peripheral Vein, Percutaneous Approach (ICD-10-PCS; 2025-05-31)
DX: K20.80 Other esophagitis without bleeding (principal); I25.10 Atherosclerotic heart disease of native coronary artery without angina pectoris; E78.00 Pure hypercholesterolemia, unspecified; E11.9 Type 2 diabetes mellitus without complications; I10 Essential (primary) hypertension; Z87.891 Personal history of nicotine dependence; Z95.1 Presence of aortocoronary bypass graft
CPT/HCPCS: 36415; 71045; 78452; 80048; 80061; 80305; 81003; 82948; 83036; 83735; 83880; 84100; 84443; 84484; 85025; 85610; 87081; 93005; 93017; 93306; 97116; 97161; 97530; 99285; A4615; A9500; G0378; J0280; J2785; J7030